=== PATIENT | male | born 1990 | race African-American/Black ===

== ENCOUNTER 2025-07-20 07:59 | Inpatient (IN) ==
[2025-07-20 08:27] LABS: Hematocrit (blood only) 40.0 % (42.0-52.0); Hemoglobin 13.0 g/dl (14.0-18.0); Immature Granulocytes # (auto) 0.03 K/uL (0.01-0.20); Immature Granulocytes % (auto) 0.2 %; Mean Corpuscular Hemoglobin 27.5 pg (25.0-34.0); Mean Corpuscular Volume 84.7 fL (80.0-100.0); Platelet Count 291 K/uL (130-400); RDW Standard Deviation 42.9 fL (36.4-46.3); Red Blood Count 4.72 M/uL (4.70-6.10); White Blood Count 14.42 K/ul (4.8-10.8)
[2025-07-20] MEDS: KETOROLAC TROMETHAMINE 15 MG/ML VIAL IV STA (08:28)
[2025-07-20] MEDS: SODIUM CHLORIDE 0.9% 1,000 ML IV ONE (08:29)
[2025-07-20] MEDS: diphenhydrAMINE 50 MG/ML VIAL IV STA (08:30)
[2025-07-20] MEDS: METOCLOPRAMIDE HCL INJ 5 MG/ML 2 ML VIAL IV ONE (08:31)
--- NOTE | 2025-07-20 08:43 | Emergency Department Note ---
History of Present Illness General Chief Complaint: Abdominal Pain Stated Complaint: ABD PAIN Time Seen by Provider: 07/20/25 08:15 History of Present Illness Provider Complaint: abdominal pain Onset (ago): 1 day(s) Pain Consistency: constant Location: diffuse Maximum Pain Intensity: 10 Current Pain Intensity: 9 Quality: + stabbing and + sharp Relieved By: + nothing Exacerbated By: + nothing Context: no foreign travel, no possible food poisoning, no sick contacts, no recent antibiotic use, no recent surgery/procedure or no recent injury Associated Symptoms: + nausea and + vomiting; no diarrhea, no fever, no chills, no constipation, no dysuria, no hematemesis, no hematochezia, no melena, no hematuria, no headache, no chest pain and no breathing difficulty Past Med/Surg History Problem List (Updated 07/20/25 @ 13:16 by Hank Gabriel MD) Leukocytosis Abdominal pain Acute pancreatitis (Acute) Social History Smoking Status: Never smoker Preferred Language: Norwegian Feels Safe at Home: Yes Physical Exam 2 Vital Signs: Vital Signs - 24 hr 07/20/25 08:01 07/20/25 08:39 07/20/25 08:56 Temperature 36.7 C Temperature Source Temporal Artery Sc an Pulse Rate 52 L 50 L 68 Pulse Rate [Finger ] Pulse Rate from Sp O2 Sensor Respiratory Rate 18 27 H Respiratory Effort / Characteristics Non-Labored Sponta neous Respiratory Depth Normal Blood Pressure 153/83 H Blood Pressure [Ri ght Arm] Blood Pressure Savita n 106 Blood Pressure Savita n [Right Arm] Blood Pressure Pos ition Sitting Pulse Oximetry 97 100 Oxygen Delivery Me thod Room Air Room Air Sepsis Recent Feve r Within 48 Hours No Sepsis New/Unexpla ined Change in Men millie Status No Sepsis Action Take n by Nursing No Action Required 07/20/25 09:54 07/20/25 10:15 07/20/25 10:33 Temperature Temperature Source Pulse Rate 71 63 Pulse Rate [Finger ] 72 Pulse Rate from Sp O2 Sensor Respiratory Rate 27 H 23 25 H Respiratory Effort / Characteristics Respiratory Depth Blood Pressure 147/88 H Blood Pressure [Ri ght Arm] 147/88 H Blood Pressure Savita n 109 Blood Pressure Savita n [Right Arm] 107 Blood Pressure Pos ition Pulse Oximetry 97 96 Oxygen Delivery Me thod Room Air Sepsis Recent Feve r Within 48 Hours Sepsis New/Unexpla ined Change in Men millie Status Sepsis Action Take n by Nursing 07/20/25 11:57 07/20/25 12:40 Temperature Temperature Source Pulse Rate 55 L 61 Pulse Rate [Finger ] Pulse Rate from Sp O2 Sensor 54 L Respiratory Rate 24 Respiratory Effort / Characteristics Respiratory Depth Blood Pressure 149/85 H Blood Pressure [Ri ght Arm] Blood Pressure Savita n 106 Blood Pressure Savita n [Right Arm] Blood Pressure Pos ition Pulse Oximetry 96 Oxygen Delivery Me thod Sepsis Recent Feve r Within 48 Hours Sepsis New/Unexpla ined Change in Men millie Status Sepsis Action Take n by Nursing Physical Exam: Physical Exam GENERAL: Patient is surrounded by correctional officers and in handcuffs and zip ties around the wrist. HENT: Exam performed. - Head: Normocephalic and atraumatic. EYES: Conjunctivae and EOM are normal. Right eye exhibits no discharge. Left eye exhibits no discharge. No scleral icterus. NECK: Normal range of motion. Neck supple. No JVD present. CV: Normal rate, regular rhythm, normal heart sounds and intact distal pulses. There is no peripheral edema. Palpable radial pulses bue. PULM/CHEST: Effort normal and breath sounds normal. No respiratory distress. No stridor. no wheezes. no rales. ABD: Diffuse tenderness to palpation of the abdomen. NEURO: Motor and sensation grossly intact. SKIN: Skin is warm and dry. He is not diaphoretic. PSYCH: normal mood and affect. Behavior is normal. Judgment and thought content normal. Course Course 0815: The patient was evaluated in room B5. A complete history and physical exam was performed Cardiac monitoring: An order was placed for continuous cardiac monitoring. The monitor shows a rate of 50 with sinus rhythm interpreted by sc [id number]: Vital signs stable. Labs show white blood cell count 14.42. Total bilirubin 1.7 direct bilirubin 1.0 AST 4-68 ALT 819 alkaline phosphatase 180. Lipase 3440. Imaging shows acute pancreatitis. There is mention of distention of the common bile duct with no radiopaque common bile duct stone seen. This could be due to reactive inflammation/inflammatory partial obstruction at the ampulla due to the pancreatitis. However if the obstructive labs persist recommend considering evaluation for common bile duct stone. Discussed case with Dr. Wright on-call GI who recommends transfer for ERCP. 1026: Guards say they prefer transfer to [place]. Spoke with [facility] GI at [place] Dr. Lopez who states she does not accept the transfer. She states that the patient does not need to be transferred and can be admitted here. She recommends treatment for pancreatitis and repeat labs in the morning. She states if the patient deteriorates or labs worsen in the morning to contact the [facility] GI team. 1029: Dr. Wright made aware of Dr. Lopez not accepting the transfer and recommendations. Dr. Wright states to admit to the medicine team 1059: [facility]. Administered Medications Sodium Chloride (Nss) 1,000 mls @ 125 mls/hr IV .Q8H JOHN Stop: 07/23/25 09:59 Last Infusion: 07/20/25 12:44 Dose: Infused Documented By: Infusion: 07/20/25 12:43 Dose: 0 mls/hr Documented By: Admin: 07/20/25 10:14 Dose: 125 mls/hr Documented By: ANGEL Lactated Ringer's (Lr) 1,000 mls @ 200 mls/hr IV .Q5H JOHN Stop: 07/21/25 02:14 Last Admin: 07/20/25 12:44 Dose: 200 mls/hr Documented By: LUC Discontinued Medications Diphenhydramine HCl (Diphenhydramine 50 Mg/Ml Vial) 25 mg IV NOW STA Stop: 07/20/25 08:17 Last Admin: 07/20/25 08:30 Dose: 25 mg Documented By: donna Hydromorphone HCl (Hydromorphone Inj 1 Mg/Ml Syringe) 1 mg IV NOW STA Stop: 07/20/25 11:13 Last Admin: 07/20/25 11:40 Dose: 1 mg Documented By: ANGEL Sodium Chloride (Nss) 1,000 mls @ 999 mls/hr IV .Q1H1M ONE Stop: 07/20/25 09:16 Last Infusion: 07/20/25 12:30 Dose: Infused Documented By: Admin: 07/20/25 08:29 Dose: 999 mls/hr Documented By: donna Piperacillin Sod/Tazobactam Sod (Zosyn) 4.5 gm in 100 mls @ 200 mls/hr IV NOW STA; Protocol Stop: 07/20/25 11:41 Last Infusion: 07/20/25 12:30 Dose: Infused Documented By: Admin: 07/20/25 11:21 Dose: 200 mls/hr Documented By: ANGEL Ioversol (Optiray 320 100ml) 94 ml IV ONCE ONE Stop: 07/20/25 09:11 Last Admin: 07/20/25 09:11 Dose: 94 ml Documented By: DUSTIN Ketorolac Tromethamine (Ketorolac Tromethamine 15 Mg/Ml Vial) 15 mg IV NOW STA Stop: 07/20/25 08:17 Last Admin: 07/20/25 08:28 Dose: 15 mg Documented By: donna Metoclopramide HCl (Metoclopramide Hcl Inj 5 Mg/Ml 2 Ml Vial) 5 mg IV ONE ONE Stop: 07/20/25 08:17 Last Admin: 07/20/25 08:31 Dose: 5 mg Documented By: donna Morphine Sulfate (Morphine Sulfate 2 Mg/Ml Carp) 2 mg IV NOW STA Stop: 07/20/25 10:00 Last Admin: 07/20/25 10:14 Dose: 2 mg Documented By: ANGEL Ondansetron HCl (Ondansetron Inj 2 Mg/Ml 2 Ml Vial) 4 mg IV NOW STA Stop: 07/20/25 11:13 Last Admin: 07/20/25 11:40 Dose: 4 mg Documented By: ANGEL Medical Decision Making Laboratory Data Attestation: I reviewed the patient's lab results. 07/20/25 08:13 07/20/25 08:13 Lab Results 07/20/25 Range/Units 08:13 WBC 14.42 H (4.8-10.8) K/ul RBC 4.72 (4.70-6.10) M/uL Hgb 13.0 L (14.0-18.0) g/dl Hct 40.0 L (42.0-52.0) % MCV 84.7 (80.0-100.0) fL MCH 27.5 (25.0-34.0) pg MCHC 32.5 (32.0-36.0) g/dL RDW Std Deviation 42.9 (36.4-46.3) fL RDW Coeff of Kennedi 13.7 (11.5-14.5) % Plt Count 291 (130-400) K/uL MPV 10.4 (9.4-12.4) fL Immature Gran % (Auto) 0.2 % Neut % (Auto) 85.6 % Lymph % (Auto) 9.4 % Mcclain % (Auto) 4.4 % Eos % (Auto) 0.1 % Baso % (Auto) 0.3 % Neut # (Auto) 12.35 H (1.40-6.50) K/uL Lymph # (Auto) 1.35 (1.20-3.40) K/uL Mcclain # (Auto) 0.64 H (0.11-0.59) K/uL Eos # (Auto) 0.01 (0.00-0.50) K/uL Baso # (Auto) 0.04 (0.00-0.20) K/uL Immature Gran # (Auto) 0.03 (0.01-0.20) K/uL Sodium 139 (136-145) mmol/L Potassium 3.5 (3.5-5.1) mmol/L Chloride 106 (98-107) mmol/L Carbon Dioxide 24 (21-32) mmol/L Anion Gap 9 (3-11) BUN 12 (6-23) mg/dl Creatinine 0.99 (0.6-1.4) mg/dl Est Cr Clr Drug Dosing Not Reportable eGFR 101.25 BUN/Creatinine Ratio 12.1 (10-20) Glucose 208 H (70-99(Fasting)) mg/dl Calcium 9.6 (8.6-10.3) mg/dl Phosphorus 1.6 L (2.5-4.9) mg/dl Magnesium 1.7 (1.7-2.4) mg/dl Total Bilirubin 1.7 H (0.2-1.0) mg/dl Direct Bilirubin 1.0 H (0-0.2) mg/dl AST 468 H (13-39) U/L ALT 819 H (7-52) U/L Alkaline Phosphatase 180 H (34-104) U/L Total Protein 7.7 (6.0-8.3) gm/dl Albumin 4.3 (3.4-5.0) gm/dl Lipase 3440 H (11-82) U/L Imaging Data Radiologist's Impression: Abdomen/Pelvis CT 07/20/25 08:[address] WITH IV CONTRAST CT DOSE: 1493.32 mGy.cm HISTORY: abd pain TECHNIQUE: Multiaxial CT images of the abdomen and pelvis were performed following the IV administration of 90 cc of Optiray, A dose lowering technique was utilized adhering to the principles of ALARA. COMPARISON STUDY: None FINDINGS: ABDOMEN: There is diffuse pancreatic edema and inflammation with a small amount of peripancreatic fluid consistent with acute pancreatitis. No pancreatic pseudocyst or peripancreatic abscess seen. There is distention of the common bile duct measuring up to 1.2 cm diameter. Gallbladder is mildly distended. No radiopaque common duct stone seen. Liver, spleen, and adrenal glands are unremarkable. Kidneys show no hydronephrosis or calculi. There is a tiny cyst at the right kidney. No abdominal aortic aneurysm. Pelvis: Prostate is mildly enlarged. Urinary bladder is mildly distended. There is moderate retained stool. No bowel inflammation or obstruction seen. Normal appendix. No free air or abscess. No enlarged adenopathy. Osseous structures: No acute osseous findings. IMPRESSION: 1. Diffuse acute pancreatitis. No pancreatic pseudocyst or peripancreatic abscess seen. 2. Distention of the common bile duct with no radiopaque common bile duct stone seen. This could be due to reactive inflammation/inflammatory partial obstruction at the ampulla due to the pancreatitis. However, if obstructive biliary labs persist, consider evaluation for common bile duct stone. 3. Otherwise as described. ACT 112: Negative or not required by law. The above report was generated using voice recognition software. It may contain grammatical, syntax or spelling errors. Electronically signed by: Billy Storm M.D. 07/20/2025 9:26 AM [facility] Narrative 0815: The patient was evaluated in room B5. A complete history and physical exam was performed Cardiac monitoring: An order was placed for continuous cardiac monitoring. The monitor shows a rate of 50 with sinus rhythm interpreted by sc [id number]: Vital signs stable. Labs show white blood cell count 14.42. Total bilirubin 1.7 direct bilirubin 1.0 AST 4-68 ALT 819 alkaline phosphatase 180. Lipase 3440. Imaging shows acute pancreatitis. There is mention of distention of the common bile duct with no radiopaque common bile duct stone seen. This could be due to reactive inflammation/inflammatory partial obstruction at the ampulla due to the pancreatitis. However if the obstructive labs persist recommend considering evaluation for common bile duct stone. Discussed case with Dr. Wright on-call GI who recommends transfer for ERCP. 1026: Guards say they prefer transfer to [place]. [facility] [place] [facility] Lopez who states she does not accept the transfer. She states that the patient does not need to be transferred and can be admitted here. She recommends treatment for pancreatitis and repeat labs in the morning. She states if the patient deteriorates or labs worsen in the morning to contact the [facility] GI team. 1029: Dr. Wright made aware of Dr. Lopez not accepting the transfer and recommendations. Dr. Wright states to admit to the medicine team 1059: Spoke with Dr. Oleksandr Monet hospitalist who accepts patient as admission. Impression & Plan Acute pancreatitis Discharge Plan Visit Data Chief Complaint: Abdominal Pain Stated Complaint: ABD PAIN ED Provider: Hank Gabriel Discharge Problem: Acute pancreatitis Patient Disposition: Admitted As Inpatient Condition: Fair Forms Stand Alone Forms: [facility] Referrals Referrals: PCP,NO [Physician] - Discharge Problem: Acute pancreatitis Qualifiers: Pancreatitis type: biliary Acute pancreatitis complication: unspecified Q ualified Code(s): K85.10 - Biliary acute pancreatitis without necrosis or infection
[2025-07-20 08:45] LABS: Anion Gap 9 (3-11); Blood Urea Nitrogen 12 mg/dl (6-23); Calcium 9.6 mg/dl (8.6-10.3); Carbon Dioxide 24 mmol/L (21-32); Chloride 106 mmol/L (98-107); Glucose 208 mg/dl (70-99(Fasting)); Potassium 3.5 mmol/L (3.5-5.1); Sodium 139 mmol/L (136-145)
[2025-07-20 09:04] LABS: Alanine Aminotransferase 819 U/L (7-52); Albumin Level 4.3 gm/dl (3.4-5.0); Alkaline Phosphatase 180 U/L (34-104); Bilirubin,Total 1.7 mg/dl (0.2-1.0); Lipase 3440 U/L (11-82); Total Protein 7.7 gm/dl (6.0-8.3)
[2025-07-20] MEDS: OPTIRAY 320 100ml IV ONE (09:11)
--- NOTE | 2025-07-20 09:28 | CT Scan Report ---
ABDOMEN AND PELVIS CT WITH IV CONTRAST CT DOSE: 1493.32 mGy.cm HISTORY: abd pain TECHNIQUE: Multiaxial CT images of the abdomen and pelvis were performed following the IV administrat ion of 90 cc of Optiray, A dose lowering technique was utilized adhering to the principles of ALARA. COMPARISON STUDY: None FINDINGS: ABDOMEN: There is diffuse pancreatic edema and inflammation with a small amount of peripancreatic flu id consistent with acute pancreatitis. No pancreatic pseudocyst or peripancreatic abscess seen. There is distention of the common bile duct measuring up to 1.2 cm diameter. Gallbladder is mildly distend ed. No radiopaque common duct stone seen. Liver, spleen, and adrenal glands are unremarkable. Kidneys show no hydronephrosis or calculi. There is a tiny cyst at the right kidney. No abdominal aortic aneurysm. Pelvis: Prostate is mildly enlarged. Urinary bladder is mildly distended. There is moderate retained stool. No bowel inflammation or obstruction seen. Normal appendix. No free air or abscess. No enlarge d adenopathy. Osseous structures: No acute osseous findings. IMPRESSION: 1. Diffuse acute pancreatitis. No pancreatic pseudocyst or peripancreatic abscess seen. 2. Distention of the common bile duct with no radiopaque common bile duct stone seen. This could be d ue to reactive inflammation/inflammatory partial obstruction at the ampulla due to the pancreatitis. However, if obstructive biliary labs persist, consider evaluation for common bile duct stone. 3. Otherwise as described. ACT 112: Negative or not required by law. The above report was generated using voice recognition software. It may contain grammatical, syntax o r spelling errors. Electronically signed by: Billy Storm M.D. 07/20/2025 9:26 AM
[2025-07-20] MEDS: SODIUM CHLORIDE 0.9% 1,000 ML IV SCH (10:14)
[2025-07-20] MEDS: MoRPHine SULFATE 2 MG/ML CARP IV STA (10:14)
[2025-07-20] MEDS: 4.5GM X1 IV STA (11:21)
[2025-07-20] MEDS: HYDROmorphone INJ 1 MG/ML SYRINGE IV STA (11:40)
[2025-07-20] MEDS: ONDANSETRON INJ 2 MG/ML 2 ML VIAL IV STA (11:40)
--- NOTE | 2025-07-20 11:59 | History & Physical Report ---
Date of Service July 20, 2025 Assessment & Plan (1) Acute pancreatitis: Plan: Patient is a 35 year old M who is an inmate at [facility], with no significant past medical history presenting with abdominal pain and fever x 1 day. Symptoms began yesterday morning with abdominal pain, nausea, vomiting, fever. Reports constant generalized abdominal pain that periodically worsens, increased tenderness with palpation. Denies alcohol use. Denies h/o high cholesterol. No sick contacts. Acute pancreatitis #Abdominal pain * Admit to Med Surg for additional management of abdominal pain 2/2 acute pancreatitis * Severe, generalized abdominal pain, Lipase 3440, CT abd showing diffuse acute pancreatitis, no pancreatic pseudocyst or peripancreatic abscess seen; Distention of the common bile duct with no radiopaque common bile duct stone * Ketorolac, Morphine given in ED with temporary relief; Dilaudid 1mg given x 1 * Reports nausea and vomiting w/o stool changes-Zofran and Reglan given * NSS 1L with maintenance fluids at 125 ml/hr given in ED * GI made aware in ED with rec to transfer for ERCP; [facility] did not accept patient given CT results; IF labs worsen, [facility] will accept for possible ERCP * Transaminitis noted- Bili 1.7, AST 468, ALT 819, Alk Phos 180-> will obtain a STAT gallbladder ultrasound * NPO now; advance to clears when able * LR at 200 ml/hr started * Trend CMP with AM labs- ordered * GI consult placed; await additional recs while inpatient * Pain management with Ketorolac (mod pain), Dilaudid (mod-severe pain) #Leukocytosis * Afebrile, Reports fever yesterday * WBC 14.42K * Zosyn 4.5gm Q8H started * Trend CBC with AM labs DVT Ppx: SCD's Code status: Full PCP: [facility] Dispo: Admit for additional management Patient seen in collaboration with Dr. Leggett. Please see addendum.I spent a total of 60 minutes coordinating, documenting and providing care for this patient excluding time spent in the performance of separately billed services or time spent by another provider/QHP. (2) Abdominal pain: (3) Leukocytosis: History of Present Illness Primary Care Provider: [facility] Patient is a 35 year old M who is an inmate at [facility], with no significant past medical history presenting with abdominal pain and fever x 1 day. Symptoms began yesterday morning with abdominal pain, nausea, vomiting, fever. Reports constant generalized abdominal pain that periodically worsens, increased tenderness with palpation. Denies alcohol use. Denies h/o high cholesterol. No sick contacts. Denies weight loss, weakness, headache, cognitive changes, vision/hearing changes, chest pain, SOB, swelling, difficulty breathing, urinary concerns, diarrhea, joint swelling/pain, ambulation difficulty, skin rashes, lesions, bleeding, bruising. In the emergency department, patient was hemodynamically stable, afebrile, and with no signs of sepsis. Elevated WBC 14.42K. Severe, generalized abdominal pain noted on exam. Lipase 3440. CT abd showing diffuse acute pancreatitis, no pancreatic pseudocyst or peripancreatic abscess seen; Distention of the common bile duct with no CBD stone. GI contacted in the ED, who suggested transfer for ERCP. [facility] was contacted and refused transfer given CT results as no definitive CBD stone visualized. Recommendation given to trend labs and if labs worsen, [facility] will accept for possible ERCP. Ketorolac, Morphine given in ED with temporary relief; Dilaudid 1mg given x 1. Zofran and Reglan given in ED. NSS 1L with maintenance fluids at 125 ml/hr given in ED and changed to LR fluid replacement. Transaminitis also noted on lab workup- Bili 1.7, AST 468, ALT 819, Alk Phos 180 History obtained primarily from the patient and via hospitalization record of current visit. No records from [facility] available. 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 WEIGHT/BMI reviewed. GEN: Healthy appearing, well-developed, thrashing in bed, 2-point shackles with zip ties to BUE PSYCH: AOx3. Normal memory, mood, and affect. HEENT -Head: NC/AT; -Eyes: PERRL, EOMI. No discharge or redn ess; -Ears: External ears are normal. -Nose: Normal nares. -Mouth and throat: MMM. Normal gums, muc nilson, palate,. Good dentition. NECK: Supple, with no masses. CV: RRR, no m/r/g. LUNGS: CTAB, no w/r/c. ABD: Soft, Severe tenderness R side abd, ND, NBS, no masses or organomegaly. : N/A SKIN: Warm, well perfused. No skin rashes or abnormal lesions. MSK: No deformities, VOGT freely EXT: No clubbing, cyanosis, or edema. NEURO: CN II-XII grossly intact, No focal deficits. Results & Data Results & Data Vital Signs (Past 12 Hours) Vital Signs Temp Pulse Pulse Resp BP BP Pulse Ox 07/20/25 10:15 72 23 147/88 H 97 07/20/25 08:56 68 27 H 100 07/20/25 08:39 50 L 07/20/25 08:01 36.7 C 52 L 18 153/83 H 97 O2 Del Method 07/20/25 10:15 Room Air 07/20/25 08:56 Room Air 07/20/25 08:39 07/20/25 08:01 Room Air Laboratory Results Short CBC 07/20/25 Range/Units 08:13 WBC 14.42 H (4.8-10.8) K/ul Hgb 13.0 L (14.0-18.0) g/dl Hct 40.0 L (42.0-52.0) % Plt Count 291 (130-400) K/uL BMP 07/20/25 08:13 Sodium 139 Potassium 3.5 Chloride 106 Carbon Dioxide 24 BUN 12 Creatinine 0.99 Glucose 208 H Calcium 9.6 Liver Function 07/20/25 Range/Units 08:13 Total Bilirubin 1.7 H (0.2-1.0) mg/dl Direct Bilirubin 1.0 H (0-0.2) mg/dl AST 468 H (13-39) U/L ALT 819 H (7-52) U/L Alkaline Phosphatase 180 H (34-104) U/L Albumin 4.3 (3.4-5.0) gm/dl Diagnostic Findings Abdomen/Pelvis CT 07/20/25 08:[address] WITH IV CONTRAST CT DOSE: 1493.32 mGy.cm HISTORY: abd pain TECHNIQUE: Multiaxial CT images of the abdomen and pelvis were performed following the IV administration of 90 cc of Optiray, A dose lowering technique was utilized adhering to the principles of ALARA. COMPARISON STUDY: None FINDINGS: ABDOMEN: There is diffuse pancreatic edema and inflammation with a small amount of peripancreatic fluid consistent with acute pancreatitis. No pancreatic pseudocyst or peripancreatic abscess seen. There is distention of the common bile duct measuring up to 1.2 cm diameter. Gallbladder is mildly distended. No radiopaque common duct stone seen. Liver, spleen, and adrenal glands are unremarkable. Kidneys show no hydronephrosis or calculi. There is a tiny cyst at the right kidney. No abdominal aortic aneurysm. Pelvis: Prostate is mildly enlarged. Urinary bladder is mildly distended. There is moderate retained stool. No bowel inflammation or obstruction seen. Normal appendix. No free air or abscess. No enlarged adenopathy. Osseous structures: No acute osseous findings. IMPRESSION: 1. Diffuse acute pancreatitis. No pancreatic pseudocyst or peripancreatic abscess seen. 2. Distention of the common bile duct with no radiopaque common bile duct stone seen. This could be due to reactive inflammation/inflammatory partial obstruction at the ampulla due to the pancreatitis. However, if obstructive biliary labs persist, consider evaluation for common bile duct stone. 3. Otherwise as described. ACT 112: Negative or not required by law. The above report was generated using voice recognition software. It may contain grammatical, syntax or spelling errors. Electronically signed by: Billy Storm M.D. 07/20/2025 9:26 AM Code Status & VTE Plan VTE Prophylaxis Plan VTE Prophylaxis will be ordered: Yes Supervising Physician Co-Signing Physician Notes Attending addendum: The patient was seen and examined in emergency room He has been complaining of severe episodic abdominal pain for the last 2 days associated with nausea and vomiting Denies any fever but did feel hot and cold at times No history of gallstones and has not had this problem before and he denies to use any alcohol On examination Lying in bed with acute distress due to abdominal pain Remains hemodynamically stable Chestclear to auscultation bilateral HeartS1-S2, regular Abdomenvery tender all over but soft Extremitiesnegative for any edema His admission labs and imaging studies reviewed Patient was noted to have very high LFTs and lipase with CT evidence of acute gallstone pancreatitis The ER physician did contact the GI on-call and suggested to be transferred to [facility] for an ERCP The ER physician did talk to on-call GI specialist in [place] Dr. Weaver advised that the patient should be admitted here and if the condition persists and tomorrow they can take the transfer The patient was started with intravenous fluid, kept n.p.o., and started with intravenous antibiotic and pain medications Agree with assessment and plan as outlined above by Pepper KEY and take the full responsibility of care in the hospital Dr Henna Leggett
[2025-07-20 12:12] LABS: Magnesium 1.7 mg/dl (1.7-2.4)
[2025-07-20] MEDS: LACTATED RINGER'S 1,000 ML IV SCH (12:44)
[2025-07-20 15:05] LABS: Cholesterol 167.0 mg/dl (0-200); HDL Cholesterol 59.0 mg/dl; Triglycerides 68.0 mg/dl (0-150)
[2025-07-20] MEDS: HYDROmorphone INJ 1 MG/ML SYRINGE IV PRN (15:05)
[2025-07-20] MEDS: ONDANSETRON INJ 2 MG/ML 2 ML VIAL IV PRN (15:21)
[2025-07-20] MEDS: PIPERACILLIN/TAZOBACTAM 4.5 GM/100 ML BAG IV SCH (17:23)
--- NOTE | 2025-07-20 18:14 | Ultrasound Report ---
Exam: Ultrasound abdomen limited. Reason for exam: Pancreatitis. Previous studies: None FINDINGS: The time scanning shows a gallbladder calculi. Additionally there is gallbladder wall thickening up to 4 mm with a positive sonographic Sesay's sign. Common bile duct is dilated measuring 10.6 mm. Pancreas is not well visualized due to bowel gas but no definite fluid collection or pseudocyst is seen at this time. Liver shows no focal abnormality. Right kidney contains a 1.5 cm cyst. No hydronephrosis. IMPRESSION: 1. Cholelithiasis. In addition there is mild gallbladder wall thickening and positive sonographic Sesay's sign which may indicate cholecystitis. 2. Mildly distended common bile duct (10.6 mm). 3. Limited visualization of pancreas. No pseudocyst, fluid or abscess collection seen at this time. 4. Further evaluation with MRCP exam would be useful. Electronically signed by Billy Joshua 07-20-2025 6:13 PM
--- NOTE | 2025-07-20 19:39 | Surgery Consultation ---
<Statement entered by Tessie Prabhakar MD - 07/21/25 11:57> I saw the patient this morning and agree with the assessment and plan of care, plan will be for further imaging with MRCP, and will follow-up after that. Date of Consultation July 20, 2025 Assessment & Plan (1) Acute pancreatitis: Patient has been admitted on the hospital service. From a surgical perspective we recommend the following: Appears that the patient has pancreatitis, given the findings on ultrasound as well as patient's laboratory values I suspect this may be gallstone pancreatitis Would keep the patient strict n.p.o. for the present time Would provide analgesics and antiemetics as needed Hydrate aggressively with intravenous fluids Antibiotics in form of Zosyn admit initiated when he should continue Serial labs should be followed Per medicine they have contacted gastroenterology for potential ERCP. The plan for the present time will be repeat LFTs with tomorrow's labs and if they become worse consideration may be given to transferring the patient to [facility] for ERCP if this service is not available [facility] Suspect the patient may benefit from a cholecystectomy at some point in the future, but he will need to have his pancreatitis resolved and will need to see improvement/resolution of his LFTs to ensure he does not have underlying choledocholithiasis Additional recommendations be forthcoming based on his clinical course as unfolds History of Present Illness Reason for Consultation: Cholelithiasis Attending Physician: Jackie Leggett MD History of Present Illness This is a 35-year-old male who presented to the emergency department any [facility] secondary abdominal pain. Patient says that the pain is located in his mid abdomen and generalized fashion without radiation or modifying factors. He does not report any nausea or vomiting. He believes he did have a fever previously. Patient says that the pain is unrelated to meals. He also reports similar episode of pain earlier this summer (approximately 2 months ago) which lasted approximately 2 days but then self resolved without any active intervention. Patient notes that he has never had any prior abdominal surgeries. Since arrival to the hospital he has had labs and imaging which independent reviewed. CT scan of the abdomen pelvis showed findings concerning for diffuse acute pancreatitis without any pancreatic pseudocyst or peripancreatic abscesses. The patient's common bile duct was noted to be distended but there were no radiopaque common bile duct stones noted. A gallbladder ultrasound was also performed that showed gallstones with mild gallbladder wall thickening. T he interpreting radiologist could not exclude cholecystitis. Labs included CBC white blood cell count is elevated 14.4. Hemoglobin and hematocrit were 13.0 and 40.0. Platelet count is normal. Chemistry profile showed sodium and potassium as well as the BUN and creatinine were normal. Patient was noted to have elevated LFTs with a total bilirubin of 1.7 and a direct bilirubin of 1.0. His AST and ALT were 468 and 819 respectively. Alkaline phosphatase was also elevated at 180. Patient's lipase was elevated at 3440. At the time of my interview he was resting comfortably in bed and he was in no distress. Patient History Social History Smoking Status: Never smoker Hx Alcohol Use: No Hx Substance Use: No Preferred Language: Syriac Communication Ability: Effective Pot Operator Required: No Beliefs That Will Affect Care: None Current Living Situation: Other Current Living Situation Comment: Inmate at [facility] Other Information That Helps Us Care for You: No Feels Safe at Home: Yes Safety Concerns: Feels Safe At This Time Review of Systems Review of Systems: All systems reviewed & are unremarkable except as noted in HPI & below Physical Exam Constitutional: WD/WN, vitals as above Eyes: + anicteric sclerae ENMT: Ears: no hearing impairment and no external ear abnormality Subungual jaundice is absent Neck: trachea midline Respiratory: normal respiratory effort; no respiratory distress and no labored breathing Cardiovascular: Rate/Rhythm: regular rate and regular rhythm Gastrointestinal (Abdomen): Abdomen is soft and nonrigid and has some slight distention. There is no rebound tenderness or guarding the patient did have generalized tenderness which appear to be greatest in the periumbilical region. Musculoskeletal: No calf tenderness Skin: no jaundice Neurologic: moves all extremities Psychiatric: A+Ox3, euthymic affect Results & Data Vital Signs (Past 12 Hours) Vital Signs Temp Pulse Pulse Resp BP BP Pulse Ox 07/20/25 14:37 37.6 C H 77 20 115/68 96 07/20/25 14:00 61 23 139/82 96 07/20/25 13:00 62 24 149/80 H 97 07/20/25 12:40 61 07/20/25 11:57 55 L 24 149/85 H 96 07/20/25 10:33 63 25 H 147/88 H 96 07/20/25 10:15 72 23 147/88 H 97 07/20/25 09:54 71 27 H 07/20/25 08:56 68 27 H 100 07/20/25 08:39 50 L 07/20/25 08:01 36.7 C 52 L 18 153/83 H 97 O2 Del Method 07/20/25 14:37 Room Air 07/20/25 14:00 07/20/25 13:00 07/20/25 12:40 07/20/25 11:57 07/20/25 10:33 07/20/25 10:15 Room Air 07/20/25 09:54 07/20/25 08:56 Room Air 07/20/25 08:39 07/20/25 08:01 Room Air PG Care Time/CCT Total # of Minutes Spent Total Time Spent with Patient: Total time spent is greater than 50% in coordination of care (as documented) at patient's floor/unit and/or counseling patient: Coding Level of Care Code 97595 OFFICE CONSULT LVL 55M Diagnoses Acute pancreatitis K85.10 Acute pancreatitis complication: unspecified Pancreatitis type: biliary (1) Acute pancreatitis Acute pancreatitis complication: unspecified Pancreatitis type: biliary Qualified Code(s): K85.10 - Biliary acute pancreatitis without necrosis or infection
[2025-07-21 06:29] LABS: Hematocrit (blood only) 35.4 % (42.0-52.0); Hemoglobin 11.7 g/dl (14.0-18.0); Mean Corpuscular Hemoglobin 28.1 pg (25.0-34.0); Mean Corpuscular Volume 84.9 fL (80.0-100.0); Platelet Count 247 K/uL (130-400); RDW Standard Deviation 45.4 fL (36.4-46.3); Red Blood Count 4.17 M/uL (4.70-6.10); White Blood Count 13.58 K/ul (4.8-10.8)
[2025-07-21 06:46] LABS: Alanine Aminotransferase 494.0 U/L (7-52); Albumin Globulin Ratio 1.4 (0.9-2); Albumin Level 3.9 gm/dl (3.4-5.0); Alkaline Phosphatase 132.0 U/L (34-104); Anion Gap 6.0 (3-11); Bilirubin,Total 1.6 mg/dl (0.2-1.0); Blood Urea Nitrogen 13.0 mg/dl (6-23); Calcium 8.7 mg/dl (8.6-10.3); Carbon Dioxide 27.0 mmol/L (21-32); Chloride 105.0 mmol/L (98-107); Creatinine Clr Calc Pharmacy 147.1 ml/min; Globulin 2.8 gm/dl (2.5-4.0); Glucose 105.0 mg/dl (70-99(Fasting)); Potassium 3.7 mmol/L (3.5-5.1); Sodium 138.0 mmol/L (136-145); Total Protein 6.7 gm/dl (6.0-8.3)
[2025-07-21 06:59] LABS: INR 1.2 (0.9-1.1); Partial Thromboplastin Time 30 Seconds (21-31); Prothrombin Time 12.4 Seconds (9.0-12.0)
[2025-07-21] MEDS ORDERED: SODIUM PHOSPHATE 3 MMOL/1 ML INFUSION IV STA (07:41)
[2025-07-21] MEDS: SODIUM PHOSPHATE 21 MMOL in SODIUM CHLORIDE 0.9% 500 ML IV ONE (08:27)
--- NOTE | 2025-07-21 10:28 | Surgery Progress Note ---
Date of Service July 21, 2025 Assessment & Plan (1) Acute pancreatitis: (2) Acute gallstone pancreatitis: Plan This is a 35-year-old male with pancreatitis, likely due to gallstone disease. He likely will need cholecystectomy during this admission but plan will be first for further evaluation of the common bile duct and allowing for the pancreatitis to improve. Recommend MRCP as well as GI consult. Agree with IV antibiotics. Will order phosphorus replacement. Will continue to follow. Admission and Anticipated Discharge Date Admission Date: July 20, 2025 Subjective Patient reports ongoing pain around his epigastric area. Otherwise he has no complaints. Review of Systems Review of Systems: All systems reviewed & are unremarkable except as noted in HPI & below Physical Exam Respiratory: Normal respiratory effort Cardiovascular: RRR, no murmur, no edema Gastrointestinal (Abdomen): Abdomen is soft, slightly distended, tender to palpation around the epigastric and right upper quadrant Results & Data Vital Signs (Past 12 Hours) Vital Signs Temp Pulse Resp BP Pulse Ox O2 Del Method 07/21/25 06:54 37.6 C H 98 H 18 149/52 H 90 Room Air 07/20/25 23:51 36.8 C 83 20 106/67 93 Room Air Sodium 138 mmol/L (136-145) 07/21/25 Potassium 3.7 mmol/L (3.5-5.1) 07/21/25 Chloride 105 mmol/L (98-107) 07/21/25 Carbon Dioxide 27 mmol/L (21-32) 07/21/25 Anion Gap 6 (3-11) 07/21/25 BUN 13 mg/dl (6-23) 07/21/25 Creatinine 0.98 mg/dl (0.6-1.4) 07/21/25 eGFR 102.49 07/21/25 BUN/Creatinine Ratio 13.3 (10-20) 07/21/25 Glucose 105 mg/dl (70-99(Fasting)) H 07/21/25 Calcium 8.7 mg/dl (8.6-10.3) 07/21/25 Phosphorus 1.6 mg/dl (2.5-4.9) L 07/20/25 Total Bilirubin 1.6 mg/dl (0.2-1.0) H 07/21/25 Direct Bilirubin 0.4 mg/dl (0-0.2) H 07/21/25 AST 177 U/L (13-39) H 07/21/25 ALT 494 U/L (7-52) H 07/21/25 Alkaline Phosphatase 132 U/L (34-104) H 07/21/25 Total Protein 6.7 gm/dl (6.0-8.3) 07/21/25 Albumin 3.9 gm/dl (3.4-5.0) 07/21/25 Globulin 2.8 gm/dl (2.5-4.0) 07/21/25 Triglycerides 68 mg/dl (0-150) 07/20/25 Cholesterol 167 mg/dl (0-200) 07/20/25 LDL Cholesterol, Calc 94 mg/dl 07/20/25 HDL Cholesterol 59 mg/dl 07/20/25 Cholesterol/HDL Ratio 2.8 (0-5) 07/20/25 PG Care Time/CCT Total # of Minutes Spent Total Time Spent with Patient: Total time spent is greater than 50% in coordination of care (as documented) at patient's floor/unit and/or counseling patient: Coding Level of Care Code 26534 SUB INP/OBS CARE 2/35MIN Diagnoses Acute pancreatitis K85.10 Acute pancreatitis complication: unspecified Pancreatitis type: biliary Acute gallstone pancreatitis K85.10 (1) Acute pancreatitis Acute pancreatitis complication: unspecified Pancreatitis type: biliary Qualified Code(s): K85.10 - Biliary acute pancreatitis without necrosis or infection
--- NOTE | 2025-07-21 10:32 | Gastrointestinal Consultation ---
Date of Consultation July 21, 2025 Assessment & Plan (1) Acute pancreatitis: Patient admitted with acute pancreatitis that is suspected to be secondary to gallstones. LFTs seem to be trending downward. - recommend supportive care for pancreatitis. - would continue to follow LFTs. - recommend MRCP to rule out retained CBD stone. - if choledocholithiasis is seen, patient will need transferred to center with ERCP coverage. -Further recommendations to come with Supervising GI provider on medical rounds. Please see co-signature comments. Supervising Physician Co-Signing Physician Notes I agree with the advanced practitioner's documentation above regarding review of case, evaluation, and assessment and plan unless outlined below. This was a shared visit in which I was present during all aspects of the case including evaluation, discussion of case, review of data and test results, interpretation of data and test results, complex medical decision making, coordination of care, communication with patient and direction of ancillary services. The patient's presentation is consistent with biliary pancreatitis. Continue supportive pancreatitis with aggressive fluid hydration, n.p.o. status, antiemesis as needed. Cholecystectomy is indicated advise during present hospitalization. MRCP has been performed. We will review the final report to determine whether there is evidence of choledocholithiasis which would warrant ERCP and therefore would require transfer to an institution providing that service. If MRCP is unrevealing then the patient should proceed to cholecystectomy at the discretion of the surgical team with performance of an intraoperative cholangiogram. Thank you for the courtesy of this consultation. History of Present Illness Reason for Consultation: pancreatitis Requesting Physician: Pepper KEY Attending Physician: Shawn Dunbar MD History of Present Illness Patient is a 35 year old male who is an inmate at [facility], with no significant past medical history who presented to the ED on 07/20/25 with abdominal pain, nausea, vomiting, and fever x [address] abdomen was done showing diffuse acute pancreatitis, no pancreatic pseudocyst or peripancreatic abscess seen; Distention of the common bile duct with no CBD stone. GI contacted in the ED, who suggested transfer for ERCP. Chiki Romero was contacted and refused transfer given CT results as no definitive CBD stone visualized. Recommendation given to trend labs and if labs worsen, Heather will accept for possible ERCP. Patient tells me that he still has some ongoing abdominal pain. The remainder of the GI ROS were unremarkable. 07/21/25 wbc 13.58. hgb 11.7, hct 35.4, plts 247, INR 1.2, T bili 1.6, d bili 0.4, AST 177, ALT 494. ALK 132. 07/20/25 CT - 1. Diffuse acute pancreatitis. No pancreatic pseudocyst or peripancreatic abscess seen. 2. Distention of the common bile duct with no radiopaque common bile duct stone seen. This could be due to reactive inflammation/inflammatory partial obstruction at the ampulla due to the pancreatitis. However, if obstructive biliary labs persist, consider evaluation for common bile duct stone. 07/20/25 US - 1. Cholelithiasis. In addition there is mild gallbladder wall thickening and positive sonographic Sesay's sign which may indicate cholecystitis. 2. Mildly distended common bile duct (10.6 mm). 3. Limited visualization of pancreas. No pseudocyst, fluid or abscess collection seen at this time. 4. Further evaluation with MRCP exam would be useful. Allergies Allergy/AdvReac Type Severity Reaction Status Date / Time No Known Allergies Allergy Verified 07/21/25 08:38 Patient History Social History Smoking Status: Never smoker Hx Alcohol Use: No Hx Substance Use: No Preferred Language: Canadian Communication Ability: Effective Armature Connector Required: No Beliefs That Will Affect Care: None Current Living Situation: Other Current Living Situation Comment: Inmate at [facility] Other Information That Helps Us Care for You: No Feels Safe at Home: Yes Safety Concerns: Feels Safe At This Time Review of Systems Review of Systems: All systems reviewed & are unremarkable except as noted in HPI & below Physical Exam Constitutional: WD/WN, vitals as above Respiratory: normal respiratory effort, lungs clear to auscultation Cardiovascular: Rate/Rhythm: regular rate and regular rhythm Gastrointestinal (Abdomen): RUQ tenderness to palpation, no guarding, soft, normal bowel sounds. Psychiatric: Orientation: alert and oriented x 3 Affect: euthymic affect Results & Data Vital Signs (Past 12 Hours) Vital Signs Temp Pulse Resp BP Pulse Ox O2 Del Method 07/21/25 06:54 99.7 F H 98 H 18 149/52 H 90 Room Air 07/20/25 23:51 98.2 F 83 20 106/67 93 Room Air Coding Level of Care Code 97503 IN/OBS CONSULT LVL 4,60M Diagnoses Acute pancreatitis K85.10 Acute pancreatitis complication: unspecified Pancreatitis type: biliary (1) Acute pancreatitis Acute pancreatitis complication: unspecified Pancreatitis type: biliary Qualified Code(s): K85.10 - Biliary acute pancreatitis without necrosis or infection
[2025-07-21] MEDS: HYDROmorphone INJ 1 MG/ML SYRINGE IV PRN (11:42)
--- NOTE | 2025-07-21 13:38 | Hospitalist Progress Note ---
Date of Service July 21, 2025 Assessment & Plan (1) Acute pancreatitis: Plan: Patient is a 35 year old M who is an inmate at [facility], with no significant past medical history presenting with abdominal pain and fever x 1 day. Symptoms began yesterday morning with abdominal pain, nausea, vomiting, fever. Reports constant generalized abdominal pain that periodically worsens, increased tenderness with palpation. Denies alcohol use. Denies h/o high cholesterol. No sick contacts. #Acute Pancreatitis #R/o Choledocolithiasis #Sepsis * Admit to Med Surg for additional management of abdominal pain 2/2 acute pancreatitis * Severe, generalized abdominal pain, Lipase 3440, CT abd showing diffuse acute pancreatitis, no pancreatic pseudocyst or peripancreatic abscess seen; Distention of the common bile duct with no radiopaque common bile duct stone * start toradol scheduled, continue dilaudid increase to q2hr prn * continue Zofran * continue maintenance fluids * GI consulted, appreciate recs * MRCP ordered, if needs ERCP will need transfer * clear liquid diet for now #Leukocytosis * continue zosyn I spent a total of 50 minutes in direct patient care, including [id number] time with the patient and/or family, reviewing medical records, ordering and reviewing diagnostic tests, and coordinating care with other healthcare providers. This time includes: history taking, physical examination, medical decision making, counseling, ECG interpretation, imaging interpretation, lab interpretation, orders, and education, excluding time spent in the performance of separately billed services. (2) Abdominal pain: (3) Leukocytosis: Admission and Anticipated Discharge Date Admission Date: July 20, 2025 Subjective Patient seen and examined at bedside. Patient doing ok today, resting comfortably on entering room. States his pain medication is not working and is having diffuse abdominal pain. States pain is in RUQ, RLQ, periumbilical region. Minimal to no epigastric pain. Some nausea. Review of Systems Review of Systems: CONSTITUTIONAL: Patient denies fevers, chills, sweats and weight changes. EYES: Patient denies any visual symptoms. EARS, NOSE, AND THROAT: No difficulties with hearing. No symptoms of rhinitis or sore throat. CARDIOVASCULAR: Patient denies chest pains, palpitations, orthopnea and paroxysmal nocturnal dyspnea. RESPIRATORY: No dyspnea on exertion, no wheezing or cough. GI: nausea, abdominal pain : No urinary hesitancy or dribbling. No nocturia or urinary frequency. No abnormal urethral discharge. MUSCULOSKELETAL: No myalgias or arthralgias. NEUROLOGIC: No chronic headaches, no seizures. Patient denies numbness, tingling or weakness. PSYCHIATRIC: Patient denies problems with mood disturbance. No problems with anxiety. ENDOCRINE: No excessive urination or excessive thirst. DERMATOLOGIC: Patient denies any rashes or skin changes. Physical Exam Physical Exam: Gen: A&O 3 NAD HEENT: NCAT, EOMI, not icteric. External ears normal. No rhinorrhea. Moist mucous membranes. Neck: Supple, full range of motion, no observable masses, No meningeal sign. Lungs: No Respiratory distress. CV: RRR, no edema. Abdomen: diffuse tenderness to palpation, not peritonitic in nature, worst pain in RUQ/RLQ/periumbilical region MSK: No joint swelling, no redness. Skin: No rashes, petechiae, lesions. Normal color per patient. Neuro: Normal Gait, Grossly intact. Psych: Appropriate for situation. Results & Data Results & Data Vital Signs (Past 12 Hours) Vital Signs Temp Pulse Resp BP Pulse Ox O2 Del Method 07/21/25 06:54 37.6 C H 98 H 18 149/52 H 90 Room Air Laboratory Results -personally reviewed, elevated lipase consistent with pancreatitis, imaging concerning for cholecystitis, leukocytosis downtrending, elevated LFTs concerning for choledocolithiasis Medications Administered Hydromorphone HCl (Hydromorphone Inj 1 Mg/Ml Syringe) 1 mg IV Q2R PRN PRN Reason: Pain Stop: 08/03/25 11:06 Last Admin: 07/21/25 11:42 Dose: 1 mg Documented By: MIRIAM Piperacillin Sod/Tazobactam Sod (Zosyn) 4.5 gm in 100 mls @ 25 mls/hr IV Q8H [facility]; Protocol Stop: 07/30/25 16:59 Last Infusion: 07/21/25 12:26 Dose: Infused Documented By: Admin: 07/21/25 08:27 Dose: 25 mls/hr Documented By: Infusion: 07/21/25 05:34 Dose: Infused Documented By: Admin: 07/21/25 01:23 Dose: 25 mls/hr Documented By: Infusion: 07/20/25 21:43 Dose: Infused Documented By: Admin: 07/20/25 17:23 Dose: 25 mls/hr Documented By: HRB Ondansetron HCl (Ondansetron Inj 2 Mg/Ml 2 Ml Vial) 4 mg IV Q6H PRN PRN Reason: Nausea And Vomiting Stop: 08/19/25 11:06 Last Admin: 07/21/25 11:42 Dose: 4 mg Documented By: Admin: 07/21/25 06:01 Dose: 4 mg Documented By: Admin: 07/20/25 21:46 Dose: 4 mg Documented By: Admin: 07/20/25 15:21 Dose: 4 mg Documented By: HRB (1) Acute pancreatitis Acute pancreatitis complication: unspecified Pancreatitis type: biliary Qualified Code(s): K85.10 - Biliary acute pancreatitis without necrosis or infection
[2025-07-21] MEDS: KETOROLAC TROMETHAMINE 15 MG/ML VIAL IV SCH (14:40)
[2025-07-21] MEDS: LACTATED RINGER'S 1,000 ML IV SCH (14:40)
--- NOTE | 2025-07-21 14:44 | XRay Report ---
XR orbits for MRI CLINICAL HISTORY: Screening for foreign body for MRI COMPARISON STUDY: None FINDINGS: No metallic foreign body seen at the orbits. IMPRESSION: No metallic foreign body seen at the orbits. ACT 112: Negative or not required by law. Electronically signed by: Billy Storm M.D. 07/21/2025 2:43 PM
[2025-07-21 15:39] LABS: Reticulocytes # 0.040 10^6/uL (0.020-0.100)
[2025-07-21 18:08] LABS: Hematocrit (blood only) 34.4 % (42.0-52.0); Hemoglobin 11.5 g/dl (14.0-18.0); Immature Granulocytes # (auto) 0.04 K/uL (0.01-0.20); Immature Granulocytes % (auto) 0.3 %; Mean Corpuscular Hemoglobin 28.8 pg (25.0-34.0); Mean Corpuscular Volume 86.2 fL (80.0-100.0); Platelet Count 221 K/uL (130-400); RDW Standard Deviation 46.7 fL (36.4-46.3); Red Blood Count 3.99 M/uL (4.70-6.10); White Blood Count 12.87 K/ul (4.8-10.8)
--- NOTE | 2025-07-21 18:29 | Magnetic Resonance Report ---
Clinical history: Abdominal pain. Gallstones Technique: Multiple T1 and T2-weighted magnetic resonance images were obtained of the abdomen without gadolinium contrast. MRCP images were obtained No prior examination is available for comparison. Findings: No definite liver mass lesion is identified on this noncontrast MRCP protocol study. Multiple gallstones are present. There is no definite sign of acute cholecystitis. No intrahepatic bile duct dilatation is noted. The common bile duct is mildly dilated in its mid and distal portion, measuring up to 8 mm. There is tapering just before the ampulla. No definite stricturing or beading of the bile ducts is seen to suggest primary sclerosing cholangitis or other intrinsic bile duct pathology. There is no definite choledocholithiasis. The pancreatic duct is of normal caliber. There is no definite sign of pancreatic divisum or other congenital anomaly. The pain interbody appears slightly edematous with suspected mild adjacent edema. No definite pancreatic mass lesion is seen The spleen is of normal size. No focal splenic lesion is evident. The adrenal glands appear unremarkable. There is a 1.3 cm right renal cyst. No renal mass lesion is seen. There is no hydronephrosis The visualized aorta is of normal caliber. No adenopathy is seen. There are small bilateral pleural effusions. There is suspected bilateral lower lobe atelectasis. No definite abnormality of the abdominal wall musculature is identified. No hernia is seen Impression: 1. Cholelithiasis without definite acute cholecystitis 2. Mild dilatation of the CBD. No clear obstructing lesion is seen 3. Small bilateral pleural effusions and bilateral lower lobe atelectasis 4. Right renal cyst 5. Possible mild acute pancreatitis ACT 112: Positive. There are findings on this exam that require communication between the performing entity and the patient following Patient Test Result Information Act ([place] ACT 112) guidelines. Electronically signed by Vj Alcocer 07-21-2025 6:29 PM
[2025-07-21 18:35] LABS: RBC Morphology Unremarkable
[2025-07-22 08:19] LABS: Hematocrit (blood only) 31.5 % (42.0-52.0); Hemoglobin 10.6 g/dl (14.0-18.0); Mean Corpuscular Hemoglobin 28.7 pg (25.0-34.0); Mean Corpuscular Volume 85.4 fL (80.0-100.0); Platelet Count 204 K/uL (130-400); RDW Standard Deviation 44.8 fL (36.4-46.3); Red Blood Count 3.69 M/uL (4.70-6.10); White Blood Count 8.69 K/ul (4.8-10.8)
[2025-07-22 08:44] LABS: Alanine Aminotransferase 303.0 U/L (7-52); Albumin Globulin Ratio 1.4 (0.9-2); Albumin Level 3.4 gm/dl (3.4-5.0); Alkaline Phosphatase 99.0 U/L (34-104); Anion Gap 4.0 (3-11); Bilirubin,Total 0.8 mg/dl (0.2-1.0); Blood Urea Nitrogen 8.0 mg/dl (6-23); Calcium 8.2 mg/dl (8.6-10.3); Carbon Dioxide 30.0 mmol/L (21-32); Chloride 104.0 mmol/L (98-107); Creatinine Clr Calc Pharmacy 163.8 ml/min; Globulin 2.5 gm/dl (2.5-4.0); Glucose 105.0 mg/dl (70-99(Fasting)); Potassium 3.4 mmol/L (3.5-5.1); Sodium 138.0 mmol/L (136-145); Total Protein 5.9 gm/dl (6.0-8.3)
[2025-07-22 08:46] LABS: INR 1.0 (0.9-1.1); Prothrombin Time 11.3 Seconds (9.0-12.0)
--- NOTE | 2025-07-22 10:22 | Surgery Progress Note ---
Date of Service July 22, 2025 Assessment & Plan (1) Acute gallstone pancreatitis: Plan: Gallstone pancreatitis and suspected passed choledocholithiasis, MRCP negative, LFTs downtrending, symptoms improving plan for laparoscopic cholecystectomy with possible cholangiogram tomorrow risks discussed to include but not limited to bleeding, infection, retained stone, bile leak, open surgery, damage to surrounding structures including bile duct, need for future or more extensive surgery, failure to treat symptoms, and risks of anesthesia. Clear liquids today, n.p.o. after midnight (2) Choledocholithiasis: Admission and Anticipated Discharge Date Admission Date: July 20, 2025 Subjective Admitted with gallstone pancreatitis and suspected passed choledocholithiasis. MRCP negative yesterday. Still with mid abdominal pain but feels slightly better. Afebrile. Patient did have clear liquid breakfast. Physical Exam Constitutional: WD/WN, vitals as above Respiratory: normal respiratory effort, lungs clear to auscultation Cardiovascular: RRR, no murmur, no edema Gastrointestinal (Abdomen): Percussion/Palpation: + abdomen tender (Mild diffuse tenderness palpation, worse in upper abdomen and RUQ); no guarding Results & Data Vital Signs (Past 12 Hours) Vital Signs Temp Pulse Resp BP Pulse Ox O2 Del Method 07/22/25 07:30 Room Air 07/21/25 22:45 37.3 C 75 18 123/81 94 Room Air Laboratory Results Laboratory Results - last 24 hr 07/21/25 07/21/25 07/21/25 06:13 15:20 17:38 WBC 12.87 H RBC 3.99 L Hgb 11.5 L Hct 34.4 L MCV 86.2 MCH 28.8 MCHC 33.4 RDW Std Deviation 46.7 H RDW Coeff of Kenn[place] 14.7 H Plt Count 221 MPV 10.5 Immature Gran % (Auto) 0.3 Neut % (Auto) 71.6 Lymph % (Auto) 20.6 Monona % (Auto) 4.8 Eos % (Auto) 2.4 Baso % (Auto) 0.3 Reticulocyte % (Auto) 1.00 Neut # (Auto) 9.21 H Lymph # (Auto) 2.65 Monona # (Auto) 0.62 H Eos # (Auto) 0.31 Baso # (Auto) 0.04 Reticulocyte # 0.040 Immature Gran # (Auto) 0.04 RBC Morphology Unremarkable Peripher Smr Path Cons Haptoglobin Pending PT INR Sodium Potassium Chloride Carbon Dioxide Anion Gap BUN Creatinine Est Cr Clr Drug Dosing eGFR BUN/Creatinine Ratio Glucose Calcium Total Bilirubin AST ALT Alkaline Phosphatase Lactate Dehydrogenase 413 H Total Protein Albumin Globulin Albumin/Globulin Ratio Direct Antiglob Test Negative ABHI (IgG-AHG) Neg ABHI, Polyspecific Neg ABHI C3b, C3d 5 Min Neg 07/22/25 07:26 WBC 8.69 RBC 3.69 L Hgb 10.6 L Hct 31.5 L MCV 85.4 MCH 28.7 MCHC 33.7 RDW Std Deviation 44.8 RDW Coeff of Kennedi 14.3 Plt Count 204 MPV 10.5 Immature Gran % (Auto) Neut % (Auto) Lymph % (Auto) Monona % (Auto) Eos % (Auto) Baso % (Auto) Reticulocyte % (Auto) Neut # (Auto) Lymph # (Auto) Monona # (Auto) Eos # (Auto) Baso # (Auto) Reticulocyte # Immature Gran # (Auto) RBC Morphology Peripher Smr Path Cons Haptoglobin PT 11.3 INR 1.0 Sodium 138 Potassium 3.4 L Chloride 104 Carbon Dioxide 30 Anion Gap 4 BUN 8 Creatinine 0.88 Est Cr Clr Drug Dosing 163.8 eGFR 114.29 BUN/Creatinine Ratio 9.1 L Glucose 105 H Calcium 8.2 L Total Bilirubin 0.8 D AST 74 H ALT 303 H Alkaline Phosphatase 99 Lactate Dehydrogenase Total Protein 5.9 L Albumin 3.4 Globulin 2.5 Albumin/Globulin Ratio 1.4 Direct Antiglob Test ABHI (IgG-AHG) ABHI, Polyspecific ABHI C3b, C3d 5 Min Diagnostic Findings Cholangiopancreatography MRI 07/21/25 11:33 Clinical history: Abdominal pain. Gallstones Technique: Multiple T1 and T2-weighted magnetic resonance images were obtained of the abdomen without gadolinium contrast. MRCP images were obtained No prior examination is available for comparison. Findings: No definite liver mass lesion is identified on this noncontrast MRCP protocol study. Multiple gallstones are present. There is no definite sign of acute cholecystitis. No intrahepatic bile duct dilatation is noted. The common bile duct is mildly dilated in its mid and distal portion, measuring up to 8 mm. There is tapering just before the ampulla. No definite stricturing or beading of the bile ducts is seen to suggest primary sclerosing cholangitis or other intrinsic bile duct pathology. There is no definite choledocholithiasis. The pancreatic duct is of normal caliber. There is no definite sign of pancreatic divisum or other congenital anomaly. The pain interbody appears slightly edematous with suspected mild adjacent edema. No definite pancreatic mass lesion is seen The spleen is of normal size. No focal splenic lesion is evident. The adrenal glands appear unremarkable. There is a 1.3 cm right renal cyst. No renal mass lesion is seen. There is no hydronephrosis The visualized aorta is of normal caliber. No adenopathy is seen. There are small bilateral pleural effusions. There is suspected bilateral lower lobe atelectasis. No definite abnormality of the abdominal wall musculature is identified. No hernia is seen Impression: 1. Cholelithiasis without definite acute cholecystitis 2. Mild dilatation of the CBD. No clear obstructing lesion is seen 3. Small bilateral pleural effusions and bilateral lower lobe atelectasis 4. Right renal cyst 5. Possible mild acute pancreatitis ACT 112: Positive. There are findings on this exam that require communication between the performing entity and the patient following Patient Test Result Information Act ([place] ACT 112) guidelines. Electronically signed by Vj Alcocer 07-21-2025 6:29 PM Orbit X-Ray 07/21/25 13:20 XR orbits for MRI CLINICAL HISTORY: Screening for foreign body for MRI COMPARISON STUDY: None FINDINGS: No metallic foreign body seen at the orbits. IMPRESSION: No metallic foreign body seen at the orbits. ACT 112: Negative or not required by law. Electronically signed by: Billy Storm M.D. 07/21/2025 2:43 PM PG Care Time/CCT Total # of Minutes Spent Total Time Spent with Patient: Total time spent is greater than 50% in coordination of care (as documented) at patient's floor/unit and/or counseling patient: Coding Level of Care Code 62304 SUB INP/OBS CARE 2/35MIN Diagnoses Acute gallstone pancreatitis K85.10 Choledocholithiasis K80.50
[2025-07-22] MEDS: HYDROmorphone INJ 1 MG/ML SYRINGE IV PRN (11:07)
--- NOTE | 2025-07-22 13:48 | Hospitalist Progress Note ---
Date of Service July 22, 2025 Assessment & Plan (1) Acute pancreatitis: Plan: Patient is a 35 year old M who is an inmate at [facility], with no significant past medical history presenting with abdominal pain and fever x 1 day. Symptoms began yesterday morning with abdominal pain, nausea, vomiting, fever. Reports constant generalized abdominal pain that periodically worsens, increased tenderness with palpation. Denies alcohol use. Denies h/o high cholesterol. No sick contacts. 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 This time includes: history taking, physical examination, medical decision making, counseling, ECG interpretation, imaging interpretation, lab interpretation, orders, and education, excluding time spent in the performance of separately billed services. (2) Abdominal pain: (3) Leukocytosis: Admission and Anticipated Discharge Date Admission Date: July 20, 2025 Subjective Patient seen and examined at bedside. Patient doing a bit better today. Discussed proceeding with cholecystectomy tomorrow, patient is agreeable. Review of Systems Review of Systems: CONSTITUTIONAL: Patient denies fevers, chills, sweats and weight changes. EYES: Patient denies any visual symptoms. EARS, NOSE, AND THROAT: No difficulties with hearing. No symptoms of rhinitis or sore throat. CARDIOVASCULAR: Patient denies chest pains, palpitations, orthopnea and paroxysmal nocturnal dyspnea. RESPIRATORY: No dyspnea on exertion, no wheezing or cough. GI: nausea, abdominal pain, improved from prior : No urinary hesitancy or dribbling. No nocturia or urinary frequency. No abnormal urethral discharge. MUSCULOSKELETAL: No myalgias or arthralgias. NEUROLOGIC: No chronic headaches, no seizures. Patient denies numbness, tingling or weakness. PSYCHIATRIC: Patient denies problems with mood disturbance. No problems with anxiety. ENDOCRINE: No excessive urination or excessive thirst. DERMATOLOGIC: Patient denies any rashes or skin changes. Physical Exam Physical Exam: Gen: A&O 3 NAD HEENT: NCAT, EOMI, not icteric. External ears normal. No rhinorrhea. Moist mucous membranes. Neck: Supple, full range of motion, no observable masses, No meningeal sign. Lungs: No Respiratory distress. CV: RRR, no edema. Abdomen: diffuse tenderness to palpation, not peritonitic in nature, worst pain in RUQ/RLQ/periumbilical region, improving MSK: No joint swelling, no redness. Skin: No rashes, petechiae, lesions. Normal color per patient. Neuro: Normal Gait, Grossly intact. Psych: Appropriate for situation. Results & Data Results & Data Vital Signs (Past 12 Hours) Vital Signs Temp Pulse Resp BP Pulse Ox O2 Del Method 07/22/25 12:49 37.2 C 50 L 18 129/81 98 Room Air 07/22/25 11:02 37.2 C 58 L 18 123/78 95 Room Air 07/22/25 07:30 Room Air Laboratory Results -personally reviewed, leukocytosis improved, Hgb dropped likely in setting of Gilbert syndrome (ABHI negative), K of 3.4 replenished, LFTs downtrending, calcium 8.2 replenished Medications Administered Hydromorphone HCl (Hydromorphone Inj 1 Mg/Ml Syringe) 1 mg IV Q2H PRN PRN Reason: Pain Stop: 08/04/25 11:34 Last Admin: 07/22/25 11:07 Dose: 1 mg Documented By: SCARLETT Piperacillin Sod/Tazobactam Sod (Zosyn) 4.5 gm in 100 mls @ 25 mls/hr IV Q8H [facility]; Protocol Stop: 07/30/25 16:59 Last Infusion: 07/22/25 12:20 Dose: Infused Documented By: Admin: 07/22/25 08:18 Dose: 25 mls/hr Documented By: Infusion: 07/22/25 05:28 Dose: Infused Documented By: Admin: 07/22/25 01:22 Dose: 25 mls/hr Documented By: Infusion: 07/21/25 21:45 Dose: Infused Documented By: Admin: 07/21/25 17:46 Dose: 25 mls/hr Documented By: Infusion: 07/21/25 12:26 Dose: Infused Documented By: Admin: 07/21/25 08:27 Dose: 25 mls/hr Documented By: Infusion: 07/21/25 05:34 Dose: Infused Documented By: Admin: 07/21/25 01:23 Dose: 25 mls/hr Documented By: Infusion: 07/20/25 21:43 Dose: Infused Documented By: Admin: 07/20/25 17:23 Dose: 25 mls/hr Documented By: HRB Ketorolac Tromethamine (Ketorolac Tromethamine 15 Mg/Ml Vial) 15 mg IV Q8 JOHN Stop: 07/26/25 13:59 Last Admin: 07/22/25 05:28 Dose: 15 mg Documented By: Admin: 07/21/25 22:04 Dose: 15 mg Documented By: Admin: 07/21/25 14:40 Dose: 15 mg Documented By: MIRIAM Ondansetron HCl (Ondansetron Inj 2 Mg/Ml 2 Ml Vial) 4 mg IV Q6H PRN PRN Reason: Nausea And Vomiting Stop: 08/19/25 11:06 Last Admin: 07/22/25 12:20 Dose: 4 mg Documented By: Admin: 07/22/25 05:28 Dose: 4 mg Documented By: Admin: 07/21/25 17:46 Dose: 4 mg Documented By: Admin: 07/21/25 11:42 Dose: 4 mg Documented By: Admin: 07/21/25 06:01 Dose: 4 mg Documented By: Admin: 07/20/25 21:46 Dose: 4 mg Documented By: Admin: 07/20/25 15:21 Dose: 4 mg Documented By: HRB (1) Acute pancreatitis Acute pancreatitis complication: unspecified Pancreatitis type: biliary Qualified Code(s): K85.10 - Biliary acute pancreatitis without necrosis or infection
[2025-07-22] MEDS: POTASSIUM CHLORIDE CRTAB 20 MEQ TABCR PO STA (14:35)
[2025-07-22] MEDS: CALCIUM GLUCONATE 1,000 MG/60 ML BAG IV STA (14:38)
[2025-07-22] MEDS: D5W AND LACTATED RINGERS 1,000 ML IV SCH (14:41)
[2025-07-22] MEDS: ACETAMINOPHEN 500 MG TAB PO SCH (17:20)
[2025-07-23] MEDS: INDOCYANINE GREEN 25 MG VIAL INJ ONE (06:57)
[2025-07-23] MEDS ORDERED: ROCURONIUM BROMIDE 10 MG/ML 5 ML VIAL IV ONE (07:00)
[2025-07-23] MEDS ORDERED: LIDOCAINE 2% 20 MG/ML 5 ML SYR IV ONE (07:00)
[2025-07-23] MEDS ORDERED: PROPOFOL IV EMULSION 10 MG/ML 20 ML VIAL IV ONE (07:00)
[2025-07-23] MEDS ORDERED: MIDAZOLAM HCL 1 MG/ML 2ML VIAL ONE (07:00)
[2025-07-23] MEDS ORDERED: HYDROmorphone INJ 2 MG/ML SYR/VIAL ONE (07:01)
[2025-07-23 07:05] LABS: Hematocrit (blood only) 32.6 % (42.0-52.0); Hemoglobin 10.6 g/dl (14.0-18.0); Mean Corpuscular Hemoglobin 28.0 pg (25.0-34.0); Mean Corpuscular Volume 86.0 fL (80.0-100.0); Platelet Count 219 K/uL (130-400); RDW Standard Deviation 43.8 fL (36.4-46.3); Red Blood Count 3.79 M/uL (4.70-6.10); White Blood Count 6.44 K/ul (4.8-10.8)
[2025-07-23 07:26] LABS: Alanine Aminotransferase 244.0 U/L (7-52); Albumin Globulin Ratio 1.3 (0.9-2); Albumin Level 3.6 gm/dl (3.4-5.0); Alkaline Phosphatase 93.0 U/L (34-104); Anion Gap 5.0 (3-11); Bilirubin,Total 0.7 mg/dl (0.2-1.0); Blood Urea Nitrogen 5.0 mg/dl (6-23); Calcium 8.6 mg/dl (8.6-10.3); Carbon Dioxide 29.0 mmol/L (21-32); Chloride 106.0 mmol/L (98-107); Creatinine Clr Calc Pharmacy 155.0 ml/min; Globulin 2.8 gm/dl (2.5-4.0); Glucose 113.0 mg/dl (70-99(Fasting)); Potassium 3.3 mmol/L (3.5-5.1); Sodium 140.0 mmol/L (136-145); Total Protein 6.4 gm/dl (6.0-8.3)
[2025-07-23 07:35] LABS: INR 1.0 (0.9-1.1); Prothrombin Time 11.0 Seconds (9.0-12.0)
[2025-07-23] MEDS: LACTATED RINGER'S 1,000 ML IV SCH (07:42)
[2025-07-23] MEDS ORDERED: DexMEDEtomidine HCL IV 100 MCG/ML VIAL IV ONE (08:16)
[2025-07-23] MEDS ORDERED: SUGAMMADEX SODIUM 200 MG/2 ML VIAL IV ONE (08:21)
[2025-07-23] MEDS ORDERED: ONDANSETRON INJ 2 MG/ML 2 ML VIAL ONE (08:22)
--- NOTE | 2025-07-23 08:37 | Anesthesiology Consultation ---
Date of Service July 23, 2025 Assessment & Plan ASA ASA2 Proposed Anesthesia Anesthesia Type: General Risk / Benefits Reviewed With: PT / POA / Parent / Guardian, Accepts Plan and Informed Consent Obtained History Surgery Operation Date: 07/23/25 07:30 Proposed Procedures p Robotic Laparoscopic Cholecystectomy - Billy Nunez DO, FACS Height/Weight Height: 6 ft 3 in Weight: 122.7 kg Allergies Allergy/AdvReac Type Severity Reaction Status Date / Time No Known Allergies Allergy Verified 07/21/25 08:38 Medications Active Medications Generic Name Dose Route Start Last Admin Trade Name Freq PRN Reason Stop Dose Admin Acetaminophen 500 mg 07/22/25 18:00 07/23/25 05:21 Acetaminophen 500 Mg Tab PO 08/21/25 17:59 Not Given Q6 JOHN Hydromorphone HCl 1 mg 07/22/25 08:39 07/23/25 05:18 Hydromorphone Inj 1 Mg/Ml Syringe IV 08/04/25 11:34 1 mg Q2H PRN Administration Pain Piperacillin Sod/Tazobactam Sod 4.5 gm in 100 mls @ 25 mls/hr 07/20/25 17:00 07/23/25 05:22 Zosyn IV 07/30/25 16:59 Infused Q8H JOHN Infusion Protocol Dextrose/Lactated Ringer's 1,000 mls @ 125 mls/hr 07/22/25 14:00 07/23/25 06:33 D5w And Lactated Ringers IV 07/25/25 13:59 Infused .Q8H JOHN Infusion Lactated Ringer's 1,000 mls @ 15 mls/hr 07/23/25 07:00 07/23/25 07:47 Lr IV 07/26/25 06:59 Infused .Q24H JOHN Infusion Ondansetron HCl 4 mg 07/20/25 11:07 07/23/25 05:17 Ondansetron Inj 2 Mg/Ml 2 Ml Vial IV 08/19/25 11:06 4 mg Q6H PRN Administration Nausea And Vomiting NPO Date Last Intake of Fluids: 07/22/25 Time Last Intake of Fluids: 23:00 Date Last Intake of Solids: 07/19/25 Time Last Intake of Solids: 23:59 Last Intake of Solids Comment: has been on a clear liquid diet until 0000 Past Medical History History of mild asthma Exercise / Class Metabolic Activity II 4-5 Yardwork/Stairs/Walk up hill Past Anesthesia History No Hx of Anesthesia Complications and No Family Hx of Anesthesia Complications History of PONV No Hx of PONV and No Hx of Motion Sickness Social History Smoking Status: Never smoker Hx Alcohol Use: No Hx Substance Use: No Physical Exam Vital Signs Last Vital Signs Temp 37.2 C 07/23/25 06:53 Pulse 59 L 07/23/25 06:53 Resp 20 07/23/25 06:53 BP 127/76 07/23/25 06:53 Pulse Ox 94 07/23/25 06:53 O2 Del Method Room Air 07/23/25 06:53 Constitutional no acute distress ENMT Mouth: no dentition abnormality Thyromental Distance: > or= 3.5 Finger Breadths Mallampati Class: II Neck normal visual inspection Respiratory normal respiratory effort; no respiratory distress Auscultation: lungs clear to auscultation bilaterally Cardiovascular Rate/Rhythm: regular rate and regular rhythm Heart Sounds: no murmur Musculoskeletal Spine: normal cervical ROM Psychiatric Orientation: alert and oriented x 3 Testing Laboratory Results 07/23/25 06:51 07/23/25 06:51 PT 11.0 Seconds (9.0-12.0) 07/23/25 06:51 INR 1.0 (0.9-1.1) 07/23/25 06:51 APTT 30 Seconds (21-31) 07/21/25 06:13 Blood Type O Positive 07/23/25 06:51 Antibody Screen NEGATIVE 07/23/25 06:51 Day of Procedure Evaluation. Date of Surgery July 23, 2025 Height/Weight Height: 6 ft 3 in Weight: 122.7 kg Vital Signs Last Vital Signs Temp 37.2 C 07/23/25 06:53 Pulse 59 L 07/23/25 06:53 Resp 20 07/23/25 06:53 BP 127/76 07/23/25 06:53 Pulse Ox 94 07/23/25 06:53 O2 Del Method Room Air 07/23/25 06:53 Allergies Allergy/AdvReac Type Severity Reaction Status Date / Time No Known Allergies Allergy Verified 07/21/25 08:38 Medications Active Medications Generic Name Dose Route Start Last Admin Trade Name Freq PRN Reason Stop Dose Admin Acetaminophen 500 mg 07/22/25 18:00 07/23/25 05:21 Acetaminophen 500 Mg Tab PO 08/21/25 17:59 Not Given Q6 JOHN Hydromorphone HCl 1 mg 07/22/25 08:39 07/23/25 05:18 Hydromorphone Inj 1 Mg/Ml Syringe IV 08/04/25 11:34 1 mg Q2H PRN Administration Pain Piperacillin Sod/Tazobactam Sod 4.5 gm in 100 mls @ 25 mls/hr 07/20/25 17:00 07/23/25 05:22 Zosyn IV 07/30/25 16:59 Infused Q8H JOHN Infusion Protocol Dextrose/Lactated Ringer's 1,000 mls @ 125 mls/hr 07/22/25 14:00 07/23/25 06:33 D5w And Lactated Ringers IV 07/25/25 13:59 Infused .Q8H JOHN Infusion Lactated Ringer's 1,000 mls @ 15 mls/hr 07/23/25 07:00 07/23/25 07:47 Lr IV 07/26/25 06:59 Infused .Q24H JOHN Infusion Ondansetron HCl 4 mg 07/20/25 11:07 07/23/25 05:17 Ondansetron Inj 2 Mg/Ml 2 Ml Vial IV 08/19/25 11:06 4 mg Q6H PRN Administration Nausea And Vomiting Past Anesthesia History No Hx of Anesthesia Complications and No Family Hx of Anesthesia Complications History of PONV No Hx of PONV and No Hx of Motion Sickness NPO Date Last Intake of Fluids: 07/22/25 Time Last Intake of Fluids: 23:00 Date Last Intake of Solids: 07/19/25 Time Last Intake of Solids: 23:59 Last Intake of Solids Comment: has been on a clear liquid diet until 0000 Home Medications Active Medications Generic Name Dose Route Start Last Admin Trade Name Freq PRN Reason Stop Dose Admin Acetaminophen 500 mg 07/22/25 18:00 07/23/25 05:21 Acetaminophen 500 Mg Tab PO 08/21/25 17:59 Not Given Q6 JOHN Hydromorphone HCl 1 mg 07/22/25 08:39 07/23/25 05:18 Hydromorphone Inj 1 Mg/Ml Syringe IV 08/04/25 11:34 1 mg Q2H PRN Administration Pain Piperacillin Sod/Tazobactam Sod 4.5 gm in 100 mls @ 25 mls/hr 07/20/25 17:00 07/23/25 05:22 Zosyn IV 07/30/25 16:59 Infused Q8H JOHN Infusion Protocol Dextrose/Lactated Ringer's 1,000 mls @ 125 mls/hr 07/22/25 14:00 07/23/25 06:33 D5w And Lactated Ringers IV 07/25/25 13:59 Infused .Q8H JOHN Infusion Lactated Ringer's 1,000 mls @ 15 mls/hr 07/23/25 07:00 07/23/25 07:47 Lr IV 07/26/25 06:59 Infused .Q24H JOHN Infusion Ondansetron HCl 4 mg 07/20/25 11:07 07/23/25 05:17 Ondansetron Inj 2 Mg/Ml 2 Ml Vial IV 08/19/25 11:06 4 mg Q6H PRN Administration Nausea And Vomiting Exercise / Class Metabolic Activity Metabolic Activity: II 4-5 Yardwork/Stairs/Walk up hill Physical Exam Constitutional: no acute distress Mouth: no dentition abnormality Thyromental Distance: > or= 3.5 Finger Breadths Mallampati Class: II Neck: + visual inspection normal Respiratory: + respiratory effort normal and + clear to auscultation bilaterally; no respiratory distress Cardiovascular: + regular rate and + regular rhythm; no murmur Musculoskeletal: no limited cervical ROM Psychiatric: + alert and + oriented x 3 ASA ASA2 Proposed Anesthesia Proposed Anesthesia: General Risk / Benefits Reviewed With: PT / POA / Parent / Guardian, Accepts Plan and Informed Consent Obtained
[2025-07-23] MEDS ORDERED: ATROPINE SULFATE 0.1 MG/ML 10ML SYR IV PRN (08:38)
[2025-07-23] MEDS: BUPIVACAINE 0.5 % 5 MG/1 ML MPF 30ML VIAL ONE (09:04)
--- NOTE | 2025-07-23 09:09 | Operative Report ---
PG Post Operative Report Pre & Post Diagnosis Operation Date: 07/23/25 07:30 Pre-Op Diagnosis: Acute gallstone pancreatitis Post-Op Diagnosis: Acute gallstone pancreatitis, acute cholecystitis I identified the patient and participated in the time-out.: Yes Procedure Operation Date: 07/23/25 07:30 Actual Procedures p Robotic Laparoscopic Cholecystectomy(Not Applicable) - Billy Nunez DO, BRENDON Surgeon Billy Nunez DO, BRENDON Stores Laborer Alba Murry Estimated Blood Loss 5 Findings Consistent with Post-Op Diagnosis Acute cholecystitis. Critical view of safety obtained, cystic duct and artery doubly clipped and divided. Good hemostasis. Specimens Gallbladder Anesthesia Type General Complications none Disposition Accompanied Patient To Recovery: No Disposition: Recovery Room Indications 35-year-old incarcerated male presented with gallstone pancreatitis and suspected passed choledocholithiasis. Plan for laparoscopic cholecystectomy. The risks of the procedure were discussed, all questions were answered, and the patient agreed to proceed with surgery as planned. Description of Procedure The patient was properly identified, consented, and taken to the operating room where he was placed in the supine position. 2.5 mg of indocyanine green were administered IV approximately 45 min prior to the surgery. General endotracheal anesthesia was induced. SCDs and a safety belt were placed. Preoperative antibiotics were administered. The patient's abdomen was prepped and draped in the standard sterile fashion. A surgical timeout was performed and all parties were in agreement that this was the correct patient and procedure to be performed and we continued as planned. An incision was made just above the umbilicus and to the right of midline. Veress needle was inserted and saline drop test confirmed entry to the abdomen. The abdomen was insufflated with carbon dioxide which the patient tolerated i ncident. Veress needle was removed and the abdomen is entered using the Optiview technique and a 5 mm camera. The introducer was removed and the abdomen inspected. No damage from initial trocar placement or Veress needle placement was identified. There were no significant abnormalities to the 4 quadrants of the abdomen. 8 mm robotic ports were then placed on the left and right. An additional 5 mm apartment assistant manager port was placed in the lateral right subcostal position. The patient was placed in reverse Trendelenburg position and rotated towards the left. The robot was then docked and the camera and robotic instruments were inserted. The gallbladder was distended and acutely and moderately inflamed. The dome of the gallbladder was grasped by the apartment assistant manager and retracted towards the left u pper quadrant and the infundibulum was retracted toward the right lower quadrant revealing Calot's triangle. Peritoneal attachments were taken down with electrocautery and blunt dissection. The cystic duct and artery were circumferentially dissected. A window of safety was obtained showing the cystic duct entering the gallbladder with no aberrant structures noted. We were able to identify the cystic duct utilizing the ICG. The cystic duct was doubly clipped and divided. The cystic artery was clipped proximally and cauterized with the bipolar device. This was divided. The gallbladder was then lifted off the gallbladder fossa with electrocautery. The right upper quadrant was irrigated and hemostasis was found to be good. The gallbladder was placed in an Endo Catch bag and removed through the one of the port sites. The fascia of the extraction site was closed with an 0 Vicryl suture utilizing the Randy-Huy device. The instruments were removed and the robot was undocked. The trochars were removed and the abdomen was allowed to collapse. The skin of all ports was closed with 4-0 Monocryl subcuticular sutures. Dermabond was placed over the wounds. The patient was extubated in the operating room and taken to the PACU where he recovered without apparent incident. All sponge, instrument and needle counts were correct at the conclusion of the procedure. The patient tolerated the procedure well. The physician's apartment assistant manager was present and scrubbed for the entirety of the case and was essential in positioning the patient, prepping and draping, retraction and exposure, driving the laparoscope, exchange of the robotic instruments removal of the gallbladder, closure of the incisions, and placement of the dressings. I attest to the content of the Intraoperative Record and any orders documented therein. Any exceptions are noted below.
--- NOTE | 2025-07-23 09:12 | Surgery Progress Note ---
Date of Service July 23, 2025 Assessment & Plan (1) S/P laparoscopic cholecystectomy: Plan: Date of surgery status post robotic cholecystectomy for gallstone pancreatitis Continue antibiotics for 24 hours Clear liquids today Repeat LFTs tomorrow (2) Acute gallstone pancreatitis: (3) Choledocholithiasis: (4) Acute calculous cholecystitis: Admission and Anticipated Discharge Date Admission Date: July 20, 2025 Subjective Patient seen and examined at the bedside in preop this morning, paper bridge [facility] No changes overnight, labs downtrending. Physical Exam Constitutional: WD/WN, vitals as above Respiratory: normal respiratory effort, lungs clear to auscultation Cardiovascular: RRR, no murmur, no edema Gastrointestinal (Abdomen): Percussion/Palpation: + abdomen tender (Epigastric and right upper quadrant) and abdomen soft; no guarding and abdomen not rigid Results & Data Vital Signs (Past 12 Hours) Vital Signs Temp Pulse Resp BP Pulse Ox O2 Del Method 07/23/25 06:53 37.2 C 59 L 20 127/76 94 Room Air 07/22/25 23:18 36.7 C 60 18 128/78 95 Room Air Laboratory Results Laboratory Results - last 24 hr 07/23/25 06:51 WBC 6.44 RBC 3.79 L Hgb 10.6 L Hct 32.6 L MCV 86.0 MCH 28.0 MCHC 32.5 RDW Std Deviation 43.8 RDW Coeff of Kenn[place] 13.8 Plt Count 219 MPV 10.3 PT 11.0 INR 1.0 Sodium 140 Potassium 3.3 L Chloride 106 Carbon Dioxide 29 Anion Gap 5 BUN 5 L Creatinine 0.93 Est Cr Clr Drug Dosing 155.0 eGFR 109.14 BUN/Creatinine Ratio 5.4 L Glucose 113 H Calcium 8.6 Total Bilirubin 0.7 AST 45 H ALT 244 H Alkaline Phosphatase 93 Total Protein 6.4 Albumin 3.6 Globulin 2.8 Albumin/Globulin Ratio 1.3 Blood Type O Positive Antibody Screen NEGATIVE PG Care Time/CCT Total # of Minutes Spent Total Time Spent with Patient: Total time spent is greater than 50% in coordination of care (as documented) at patient's floor/unit and/or counseling patient: Coding Level of Care Code 11742 SUB INP/OBS CARE 2/35MIN Diagnoses S/P laparoscopic cholecystectomy Z90.49 Acute gallstone pancreatitis K85.10 Choledocholithiasis K80.50 Acute calculous cholecystitis K80.00
[2025-07-23] MEDS: HYDROmorphone INJ 2 MG/ML SYR/VIAL IV PRN (09:26)
[2025-07-23] MEDS: PROMETHAZINE HCL 6.25 MG in SODIUM CHLORIDE 0.9% 50 ML IV PRN (09:27)
[2025-07-23] MEDS: PROMETHAZINE HCL INJ 25 MG/ML 1 ML VIAL ONE (09:33)
[2025-07-23] MEDS: SODIUM CHLORIDE 0.9% 50 ML BAG ONE (09:33)
[2025-07-23] MEDS: HYDROmorphone INJ 0.5 MG/0.5 ML SYR IV PRN (10:59)
--- NOTE | 2025-07-23 13:57 | Anesthesiology Progress Note ---
Date of Service July 23, 2025 Anesthesia Post Procedure Vital Signs Vital Signs: Temp Pulse Pulse Resp BP BP Pulse Ox 07/23/25 13:49 36.4 C L 54 L 16 126/76 94 07/23/25 12:41 37.2 C 59 L 16 117/78 95 07/23/25 11:40 37.2 C 56 L 16 113/68 96 07/23/25 11:02 36.8 C 63 16 131/78 92 07/23/25 10:30 07/23/25 10:30 36.8 C 50 L 16 129/80 90 07/23/25 10:05 62 21 129/81 92 07/23/25 09:55 37.1 C 75 20 117/73 93 07/23/25 09:45 65 22 134/81 99 07/23/25 09:35 77 21 123/91 96 07/23/25 09:25 70 18 126/88 98 07/23/25 09:19 36.7 C 86 16 154/80 H 94 07/23/25 06:53 37.2 C 59 L 20 127/76 94 07/22/25 23:18 36.7 C 60 18 128/78 95 07/22/25 15:00 37 C 52 L 18 133/80 94 O2 Del Method O2 Flow Rate 07/23/25 13:49 Nasal Cannula 2 07/23/25 12:41 Nasal Cannula 2 07/23/25 11:40 Nasal Cannula 2 07/23/25 11:02 Nasal Cannula 2 07/23/25 10:30 Nasal Cannula 2 07/23/25 10:30 Nasal Cannula 2 07/23/25 10:05 Room Air 07/23/25 09:55 Room Air 07/23/25 09:45 Oxymask 2 07/23/25 09:35 Oxymask 6 07/23/25 09:25 Oxymask 6 07/23/25 09:19 Oxymask 6 07/23/25 06:53 Room Air 07/22/25 23:18 Room Air 07/22/25 15:00 Room Air Pain Intensity Abdomen: Pain Intensity: 9 Transfer of Care Handoff Completed per policy Notes Mental Status: alert / awake / arousable and participated in evaluation Nausea / Vomiting: adequately controlled Pain: adequately controlled Airway Patency, RR, SpO2: stable & adequate BP & HR: stable & adequate Hydration State: stable & adequate Anesthetic Complications: no major complications apparent and Pt Satisfied with anesthetic care
--- NOTE | 2025-07-23 14:46 | Hospitalist Progress Note ---
Date of Service July 23, 2025 Assessment & Plan (1) Severe sepsis with acute organ dysfunction: (2) Choledocholithiasis with acute cholecystitis: (3) Acute gallstone pancreatitis: Plan Patient 35-year-old gentleman presented with severe sepsis and organ dysfunction due to acute cholecystitis and choledocholithiasis and gallstone pancreatitis. Patient seen post cholecystectomy on 07/23/2025. Patient still reporting significant mount of pain. Reviewed pain medication, appears as though he has been getting fairly frequent doses of pain medication. Nursing reports that he is quite sensitive to pain and has been eating a fair amount of medication Continue to monitor pain, attempt to transition to oral pain medications tomorrow Continue antibiotics Clear liquid diet advance as tolerated Replace potassium, adjust IV fluids Reviewed operative report Admission and Anticipated Discharge Date Admission Date: July 20, 2025 Subjective Patient seen postoperatively. Still in a fair amount of pain. Nursing reports that patient has been and in a significant mount of pain even preoperatively. Physical Exam Physical Exam: Constitutional: Alert, moderate distress due to pain, nontoxic HEENT: Mucous membranes moist. Lungs: Clear to auscultation, decreased, no wheezes rales or rhonchi CV: S1-S2, regular Abdomen: Slightly distended, diffusely tender. Port incisions closed with glue, no significant ecchymosis Extremities: No significant edema Neuro: No focal deficits Psych: Cooperative, normal mood Results & Data Results & Data Vital Signs (Past 12 Hours) Vital Signs Temp Pulse Pulse Resp BP BP Pulse Ox 07/23/25 13:49 36.4 C L 54 L 16 126/76 94 07/23/25 12:41 37.2 C 59 L 16 117/78 95 07/23/25 11:40 37.2 C 56 L 16 113/68 96 07/23/25 11:02 36.8 C 63 16 131/78 92 07/23/25 10:30 07/23/25 10:30 36.8 C 50 L 16 129/80 90 07/23/25 10:05 62 21 129/81 92 07/23/25 09:55 37.1 C 75 20 117/73 93 07/23/25 09:45 65 22 134/81 99 07/23/25 09:35 77 21 123/91 96 07/23/25 09:25 70 18 126/88 98 07/23/25 09:19 36.7 C 86 16 154/80 H 94 07/23/25 06:53 37.2 C 59 L 20 127/76 94 O2 Del Method O2 Flow Rate 07/23/25 13:49 Nasal Cannula 2 07/23/25 12:41 Nasal Cannula 2 07/23/25 11:40 Nasal Cannula 2 07/23/25 11:02 Nasal Cannula 2 07/23/25 10:30 Nasal Cannula 2 07/23/25 10:30 Nasal Cannula 2 07/23/25 10:05 Room Air 07/23/25 09:55 Room Air 07/23/25 09:45 Oxymask 2 07/23/25 09:35 Oxymask 6 07/23/25 09:25 Oxymask 6 07/23/25 09:19 Oxymask 6 07/23/25 06:53 Room Air Diagnostic Findings Reviewed imaging, laboratory and diagnostic studies. Pertinent findings as below. WBC 6.4 Hemoglobin 10.6 Potassium 3.3 Creatinine 0.93 AST 45, improved ALT 244, improved
[2025-07-23] MEDS: POTASSIUM CHLORIDE CRTAB 20 MEQ TABCR PO STA (15:05)
[2025-07-23] MEDS: NSS + 20MEQ KCL 20 MEQ/1,000 ML BAG IV SCH (16:57)
[2025-07-24 07:41] LABS: Hematocrit (blood only) 33.1 % (42.0-52.0); Hemoglobin 11.1 g/dl (14.0-18.0); Immature Granulocytes # (auto) 0.01 K/uL (0.01-0.20); Immature Granulocytes % (auto) 0.1 %; Mean Corpuscular Hemoglobin 28.9 pg (25.0-34.0); Mean Corpuscular Volume 86.2 fL (80.0-100.0); Platelet Count 263 K/uL (130-400); RDW Standard Deviation 42.6 fL (36.4-46.3); Red Blood Count 3.84 M/uL (4.70-6.10); White Blood Count 7.31 K/ul (4.8-10.8)
--- NOTE | 2025-07-24 07:59 | Surgery Progress Note ---
Date of Service July 24, 2025 Assessment & Plan (1) Acute calculous cholecystitis: Plan: POD#1 robotic cholecystectomy WBC 7.3, Hbg 11.1. LFTs are pending. Vitals are stable post op pain and nausea reported incisions are c/d/i pt just received some anti nausea and po oxycodone, will add a dose of toradol this AM if CMP okay may continue to advance diet as tolerates pending his symptoms if pain and nausea improved may consider dispo later today will need f/u in the office with dr. welch in 2 weeks Admission and Anticipated Discharge Date Admission Date: July 20, 2025 Supervising Physician Co-Signing Physician Notes Patient seen and examined, labs reviewed, agree with above. POD #1 robotic cholecystectomy for cholecystitis and gallstone pancreatitis. Doing well, pain improved, had some nausea overnight but this is improved. On exam he is afebrile with stable vitals. His abdomen is soft. Appropriately tender to palpation. Incisions without infection. WBC normal, LFTs normalizing. He can have regular diet, discharge to intermediate today or tomorrow. Wound care instructions and activity restrictions reviewed. Return precautions given, call with questions or concerns. Subjective Patient seen this AM. Reporting + pain and nausea. Physical Exam Physical Exam: awake/alert, no distress Gastrointestinal (Abdomen): Inspection/Auscultation: + abdominal surgical incision (c/d/i with dermabond, no signs of infection) Percussion/Palpation: + abdomen tender (expected tenderness to palpation post operatively) and abdomen soft Results & Data Vital Signs (Past 12 Hours) Vital Signs Temp Pulse Resp BP Pulse Ox O2 Del Method 07/24/25 03:19 98.2 F 52 L 17 129/77 94 Room Air 07/23/25 23:21 99.0 F 47 L 20 148/89 H 94 Room Air PG Care Time/CCT Total # of Minutes Spent Total Time Spent with Patient: Total time spent is greater than 50% in coordination of care (as documented) at patient's floor/unit and/or counseling patient: Coding Level of Care Code 21877 Post Operative Follow-Up Diagnoses Acute calculous cholecystitis K80.00
[2025-07-24 08:01] LABS: Alanine Aminotransferase 217.0 U/L (7-52); Albumin Globulin Ratio 1.3 (0.9-2); Albumin Level 3.7 gm/dl (3.4-5.0); Alkaline Phosphatase 91.0 U/L (34-104); Anion Gap 5.0 (3-11); Bilirubin,Total 0.6 mg/dl (0.2-1.0); Blood Urea Nitrogen 4.0 mg/dl (6-23); Calcium 8.5 mg/dl (8.6-10.3); Carbon Dioxide 28.0 mmol/L (21-32); Chloride 107.0 mmol/L (98-107); Creatinine Clr Calc Pharmacy 167.6 ml/min; Globulin 2.9 gm/dl (2.5-4.0); Glucose 105.0 mg/dl (70-99(Fasting)); Potassium 3.7 mmol/L (3.5-5.1); Sodium 140.0 mmol/L (136-145); Total Protein 6.6 gm/dl (6.0-8.3)
[2025-07-24 08:10] VITALS: RESP 16
[2025-07-24] MEDS: KETOROLAC TROMETHAMINE 15 MG/ML VIAL IV ONE (08:59)
--- NOTE | 2025-07-24 10:21 | Hospitalist Progress Note ---
Date of Service July 24, 2025 Assessment & Plan (1) Severe sepsis with acute organ dysfunction: (2) Choledocholithiasis with acute cholecystitis: (3) Acute gallstone pancreatitis: Plan Patient is postop day 1 from cholecystectomy. Overall clinically patient is doing significantly better. Does seem to have somewhat low tolerance for pain. Discussed with patient how we go to manage his pain with oral medications. Will advance his diet today. Encourage some activity. Informed patient of anticipate discharge tomorrow Transition to short course of oral antibiotics Follow-up with surgery as coordinated Admission and Anticipated Discharge Date Admission Date: July 20, 2025 Subjective Patient continues to complain of severe abdominal pain. Nausea and not much appetite. Physical Exam Physical Exam: Constitutional: Alert, nontoxic, no acute distress HEENT: Mucous membranes moist. Lungs: Clear to auscultation, decreased, no wheezes rales or rhonchi CV: S1-S2, regular Abdomen: Soft, diffuse tenderness, incisional tenderness, mild guarding, normal active bowel sounds Extremities: No significant edema Neuro: No focal deficits Psych: Cooperative, normal mood Results & Data Results & Data Vital Signs (Past 12 Hours) Vital Signs Temp Pulse Resp BP Pulse Ox O2 Del Method 07/24/25 07:13 37.0 C 61 16 137/73 95 Room Air 07/24/25 03:19 36.8 C 52 L 17 129/77 94 Room Air 07/23/25 23:21 37.2 C 47 L 20 148/89 H 94 Room Air Diagnostic Findings Reviewed imaging, laboratory and diagnostic studies. Pertinent findings as below. WBC 7.3 Hemoglobin 11.1 Electrolytes stable Creatinine 0.86 AST 61 ALT 217
[2025-07-24] MEDS: ACETAMINOPHEN 500 MG TAB PO SCH (10:46)
[2025-07-24] MEDS: DOCUSATE SODIUM 100 MG CAP PO SCH (15:25)
[2025-07-24] MEDS: LACTULOSE SYRUP 20 GM/30 ML UDC PO ONE (15:25)
[2025-07-24] MEDS: AMOXICILLIN/CLAVULANATE 875 MG TAB PO SCH (16:50)
[2025-07-24] MEDS: IBUPROFEN 600 MG TAB PO PRN (16:53)
[2025-07-25 07:31] VITALS: BP 125/71; PULSE 57; TEMP 98.1; O2SAT 95
--- NOTE | 2025-07-25 10:19 | Discharge Summary ---
Discharge Summary Date of Service July 25, 2025 Principal Dx & Hospital Course #1 = Principal Diagnosis (1) Severe sepsis with acute organ dysfunction: (2) Choledocholithiasis with acute cholecystitis: (3) Acute gallstone pancreatitis: Plan Patient 35-year-old gentleman currently incarcerated at [place] presented to the emergency room with severe abdominal pain and fever. In the emergency room imaging was consistent with acute pancreatitis and distention of the common bile duct. Patient was admitted to the hospital. He was placed on IV antibiotics. There was consideration of possible transfer but ultimately stated Britany Galloway with surgical and GI consultations. Was evaluated by GI who recommended MRCP. MRCP was consistent with acute cholecystitis but no definite obstructing lesion in the common bile duct. There was also evidence of mild acute pancreatitis. Surgical consultation recommended some ongoing antibiotics and allowing the acute cholecystitis to settle down a little bit. Patient eventually underwent a robotic assisted laparoscopic cholecystectomy on 07/23/2025. Postoperatively the patient's symptoms significantly improved. His diet was advanced. He was transition to oral antibiotics. On the day of discharge she had eaten his full breakfast. He had a good bowel movement the night before. And his pain was decreasing by the hour. Incisions were clean and dry and he was given i nstructions for outpatient care by surgery and will follow-up with them as coordinated he will return to the custodial for ongoing care and recovery. Phone conversation with ting CUBA at [facility] who is agreeable to return of the patient. Notes For Next Care Provider See instructions by surgery Medication Changes From Visit Augmentin for 2 more days Tylenol and Motrin for pain Oxycodone for another 1 to 2 days for pain Colace as a stool softener Admission HPI Per Admitting Provider Patient is a 35 year old M who is an inmate at [facility], with no significant past medical history presenting with abdominal pain and fever x 1 day. Symptoms began yesterday morning with abdominal pain, nausea, vomiting, fever. Reports constant generalized abdominal pain that periodically worsens, increased tenderness with palpation. Denies alcohol use. Denies h/o high cholesterol. No sick contacts. Denies weight loss, weakness, headache, cognitive changes, vision/hearing changes, chest pain, SOB, swelling, difficulty breathing, urinary concerns, diarrhea, joint swelling/pain, ambulation difficulty, skin rashes, lesions, bleeding, bruising. In the emergency department, patient was hemodynamically stable, afebrile, and with no signs of sepsis. Elevated WBC 14.42K. Severe, generalized abdominal pain noted on exam. Lipase 3440. CT abd showing diffuse acute pancreatitis, no pancreatic pseudocyst or peripancreatic abscess seen; Distention of the common bile duct with no CBD stone. GI contacted in the ED, who suggested transfer for ERCP. Chiki Romero was contacted and refused transfer given CT results as no definitive CBD stone visualized. Recommendation given to trend labs and if labs worsen, Heather will accept for possible ERCP. Ketorolac, Morphine given in ED with temporary relief; Dilaudid 1mg given x 1. Zofran and Reglan given in ED. NSS 1L with maintenance fluids at 125 ml/hr given in ED and changed to LR fluid replacement. Transaminitis also noted on lab workup- Bili 1.7, AST 468, ALT 819, Alk Phos 180 History obtained primarily from the patient and via hospitalization record of current visit. No records from [facility] available. Admission Exam Per Admitting Provider See H&P Discharge Exam Constitutional: Alert, nontoxic HEENT: Mucous membranes moist. Lungs: Clear to auscultation, decreased, no wheezes rales or rhonchi CV: S1-S2, regular Abdomen: Soft, mild incisional tenderness, no distention, no guarding, no rigidity, port incisions glued shut and clean and dry Extremities: No significant edema Neuro: No focal deficits Psych: Cooperative, normal mood Updated Medication List Medication Instructions Recorded Confirmed Type acetaminophen 500 mg tablet 1,000 mg (2 x 500 mg) PO TID 5 07/25/25 Rx (Tylenol Extra Strength) days #30 tabs amoxicillin 875 mg-potassium 1 tab PO BIDM 2 days #4 tabs 07/25/25 Rx clavulanate 125 mg tablet docusate sodium 100 mg capsule 100 mg PO BID #20 caps 07/25/25 Rx ibuprofen 600 mg tablet 600 mg PO Q8H PRN pain #10 tabs 07/25/25 Rx oxycodone 5 mg tablet 5 mg PO Q3H PRN pain #6 tabs 07/25/25 Rx Hospital Stay Data Consultations 07/20/25 10:52 ED Decision to Admit Stat 07/20/25 14:19 Consult Gastroenterology Routine 07/20/25 18:42 Consult General Surgery Routine Procedures Performed Operation Date: 07/23/25 07:30 Actual Procedures p Robotic Laparoscopic Cholecystectomy(Not Applicable) - Billy Nunez DO, [place] Diagnostic Imagining Performed 07/20/25 08:16 CT abd pelvis IV con only Stat 07/20/25 11:51 US abdomen limited Stat 07/21/25 11:33 MR MRCP Urgent Reviewed imaging, laboratory and diagnostic studies. Pertinent findings as below. WBCs 7.3 Hemoglobin 9.1 Platelets of 263 Electrolytes within normal range Creatinine 0.86 Glucose 105 AST 61, improved from admission ALT 217, improved from admission Pathology of gallbladder pending Pending Results Patient Have Any Pending Studies at Discharge: Yes Discharge Instructions Given to Patient (Per Discharging Provider) SPECIAL CARE INSTRUCTIONS: * You have skin glue over your incisions called dermabond. you may shower with this on. It will tend to dissolve and fall off within a couple weeks. Do not pick at the skin glue * You may shower . NO soaking in pools or baths for 2 weeks * No lifting greater than 10lbs. No strenuous exercise until cleared by surgeon. Light walking is accepted. * No driving while taking narcotic pain medication; wait at least 3 days * No drinking alcohol while taking narcotic pain medication * You may take Tylenol or Ibuprofen. Do not exceed the daily limit of acetaminophen within a 24 hour time period. * May use Ibuprofen/Tylenol over the counter for pain as tolerated. Do not exceed 3grams of Tylenol per 24 hours * Expect some swelling and bruising. * Diet- you may resume your regular diet Call your doctor if: * Temperature above 101 degrees, nausea/vomiting, fever/chills * Pain not relieved by pain medicine ordered * There is increased drainage or redness from any incision * You have any unanswered questions or concerns [phone]. FOLLOW UP VISIT: If not already scheduled, please call the office for a follow-up visit. Office Total Time Total Time Spent Total Time Spent (In Minutes): 32
--- NOTE | 2025-07-25 10:44 | Surgery Progress Note ---
Date of Service July 25, 2025 Assessment & Plan (1) Acute calculous cholecystitis: Plan: POD#2 robotic cholecystectomy, doing well Okay for discharge from general surgery standpoint APAP, and/or NSAIDs as needed pain Wound care instructions and activity restrictions reviewed Return precautions given Admission and Anticipated Discharge Date Admission Date: July 20, 2025 Subjective POD #2 robotic cholecystectomy for cholecystitis and gallstone pancreatitis. Feeling much better, pain with coughing or walking. Otherwise significantly improved. Tolerating diet. Physical Exam Constitutional: WD/WN, vitals as above Respiratory: normal respiratory effort, lungs clear to auscultation Cardiovascular: RRR, no murmur, no edema Gastrointestinal (Abdomen): Inspection/Auscultation: + abdominal surgical incision (No infection) Percussion/Palpation: + abdomen tender (Appropriately tender to palpation) and abdomen soft; no guarding and abdomen not rigid Results & Data Vital Signs (Past 12 Hours) Vital Signs Temp Pulse Resp BP Pulse Ox O2 Del Method 07/25/25 07:31 36.7 C 57 L 16 125/71 95 Room Air PG Care Time/CCT Total # of Minutes Spent Total Time Spent with Patient: Total time spent is greater than 50% in coordination of care (as documented) at patient's floor/unit and/or counseling patient: Coding Level of Care Code None Diagnoses Acute calculous cholecystitis K80.00
== END 2025-07-25 11:42 | DRG 853 ==
LOC: ED 07:59 → 3N 14:02 → SUATTDRO 14:16 → 3N 14:16